=== PATIENT | female | born 1935 | race Caucasian/White ===

== ENCOUNTER → 2016-06-14 | Outpatient (CLI) | payer MEDICARE, BC ==
--- NOTE | 2016-06-15 09:04 | ECHOF ---
Referral Reason:R06.00 dyspnea MEASUREMENTS -------- HEIGHT: 152.4 cm WEIGHT: 50.8 kg BP: IVSd: 1.4 cm (0.6 - 1.1) LVIDd: 2.9 cm (3.9 - 5.3) LVPWd: 1.4 cm (0.6 - 1.1) IVSs: 1.9 cm LVIDs: 1.3 cm LVPWs: 1.7 cm Ao Diam: 2.8 cm (2.0 - 3.7) AV Cusp: 1.6 cm (1.5 - 2.6) LA Diam: 3.5 cm (2.7 - 3.8) MV EXCURSION: 10.888 mm (> 18.000) MV EF SLOPE: 23 mm/s (70 - 150) EPSS: 0.4 cm MV E Heri: 0.74 m/s MV DecT: 175 ms MV A Heri: 1.21 m/s MV E/A Ratio: 0.61 FINDINGS -------- Resting tachycardia (HR>100bpm). This was a technically difficult study with suboptimal views. Pt. Very Sob Pt has severe COPD. There is moderate concentric left ventricular hypertrophy. Possible LVOT Obstruction with a Max PG OF 30mmHg and a Mean PG of 16mmHg. The right ventricle is normal in size and function. The left atrium is normal in size. The right atrium is normal in size. Aortic valve is trileaflet and is mildly thickened. The mitral valve leaflets are mildly thickened. Mild mitral regurgitation is present. Trace tricuspid regurgitation present. The right ventricular systolic pressure, as measured by Doppler, is {RVSP}. Pulmonic valve appears structurally normal. The aortic root size is normal. The pericardium is normal. CONCLUSIONS -------- 1. Resting tachycardia (HR>100bpm). 2. Aortic valve is trileaflet and is mildly thickened. 3. The mitral valve leaflets are mildly thickened. 4. Mild mitral regurgitation is present. 5. Trace tricuspid regurgitation present. 6. The right ventricular systolic pressure, as measured by Doppler, is {RVSP}. 7. Pulmonic valve appears structurally normal. 8. The aortic root size is normal. 9. The pericardium is normal. 10. This was a technically difficult study with suboptimal views. 11. Pt. Very Sob 12. Pt has severe COPD. 13. There is moderate concentric left ventricular hypertrophy. 14. Possible LVOT Obstruction with a Max PG of 30mmHg and a Mean PG of 16mmHg. 15. The right ventricle is normal in size and function. 16. The left atrium is normal in size. 17. The right atrium is normal in size. EXHIBITS CURATOR: Salome Joseph RDCS
== END | disposition home or self-care (01) ==
LOC: RADECHMAIN 13:11
PROVIDERS: ATTEND Family Medicine
DX: I08.3 Combined rheumatic disorders of mitral, aortic and tricuspid valves (principal); J44.9 Chronic obstructive pulmonary disease, unspecified; R00.0 Tachycardia, unspecified
CPT/HCPCS: 93306

== ENCOUNTER 2017-02-18 14:51 | Emergency (ER) | payer MEDICARE, BC ==
[2017-02-18] MEDS ORDERED: LIDOCAINE/EPINEPHR/TETRACAINE 5 ML BOTTLE TOPICAL ONE (15:38)
--- NOTE | 2017-02-18 16:27 | CT ---
EXAMINATION TYPE: CT brain wo con DATE OF EXAM: 02/18/2017 COMPARISON: NONE HISTORY: Fall today. Injury to nose. CT DLP: 1213.[address] of the brain was performed. The ventricles, basal cisterns and sulci overlying the cerebral convexities demonstrate mild enlargem ent. There is no evidence for intracranial hemorrhage or sulcal effacement. There is decreased attenuation about the periventricular white matter and deep white matter of both c erebral hemispheres, compatible with chronic small vessel ischemia. Differential diagnosis does inclu de demyelination. No mass effects are seen.No midline shift. Osseous calvarium is intact. If symptoms persist consider MRI. IMPRESSION: 1. Age related atrophic and chronic small vessel ischemic change without acute intracranial process s een at this time.
[2017-02-18] MEDS ORDERED: DIPH,PERTUS(ACELL)TETVAC-LF 0.5 ML VIAL IM ONE (16:29)
--- NOTE | 2017-02-18 16:30 | CT ---
EXAMINATION TYPE: CT facial bones wo con DATE OF EXAM: 02/18/2017 COMPARISON: NONE HISTORY: Fall today. Injury to nose. CT DLP: 494.[address] of the facial bones was performed in the axial and coronal planes. Bone and soft tissu e window settings are submitted. Paranasal soft tissue swelling noted. Mildly comminuted and none significantly depressed nasal bone fracture seen. Nasal spine component id entified. No additional facial bone fractures identified at this time. The globes are intact. Paranasal sinuses are well-aerated. IMPRESSION: 1. Mildly comminuted and none significantly depressed nasal bone fracture seen. Nasal spine componen t identified.
--- NOTE | 2017-02-18 16:31 | ED ---
General Adult HPI - General Chief complaint: Wound/Laceration Stated complaint: fall/nose lac Time Seen by Provider: 02/18/17 15:33 Source: patient, RN notes reviewed Mode of arrival: wheelchair Limitations: no limitations - History of Present Illness Initial comments: This is a 81-year-old female presents emergency Department with chief complaint of trip and fall. Patient states that she tripped forward falling onto carpet. Patient states she has a nose laceration. She denies any blood thinners denies headache, dizziness, neck pain or loss consciousness. Patient states she is unsure when her last tetanus was. Patient denies any other injuries at this time other then his nose laceration. Denies any extremity injury no dentition injury - Related Data Previous Rx's Medication Instructions Recorded Amoxicillin/Potassium Clav 1 tab PO Q12HR #20 tab 02/18/17 [Augmentin 875-125 Tablet] Allergies Allergy/AdvReac Type Severity Reaction Status Date / Time No Known Allergies Allergy Verified 02/18/17 14:56 Review of Systems ROS Statement: Those systems with pertinent positive or pertinent negative responses have been documented in the HPI. ROS Other: All systems not noted in ROS Statement are negative. Past Medical History Past Medical History: COPD History of Any Multi-Drug Resistant Organisms: None Reported Past Psychological History: No Psychological Hx Reported Smoking Status: Former smoker Past Alcohol Use History: None Reported Past Drug Use History: None Reported General Exam Limitations: no limitations General appearance: alert, in no apparent distress Head exam: Present: atraumatic, normocephalic, normal inspection Eye exam: Present: normal appearance, PERRL, EOMI. Absent: scleral icterus, conjunctival injection, periorbital swelling ENT exam: Present: normal oropharynx, mucous membranes moist, TM's normal bilaterally, normal external ear exam, other (Stellate 3 cm laceration of the nose, nasal bone is visible with chip of the bone noted) Neck exam: Present: normal inspection, full ROM. Absent: tenderness, meningismus, lymphadenopathy Respiratory exam: Present: normal lung sounds bilaterally. Absent: respiratory distress, wheezes, rales, rhonchi, stridor Cardiovascular Exam: Present: regular rate, normal rhythm, normal heart sounds. Absent: systolic murmur, diastolic murmur, rubs, gallop, clicks Neurological exam: Present: alert, oriented X3, CN II-XII intact, reflexes normal. Absent: motor sensory deficit Skin exam: Present: warm, dry, intact, normal color. Absent: rash Course Vital Signs 02/18/17 14:53 Temperature 98.0 F Pulse Rate 100 Respiratory 20 Rate Blood Pressure 145/85 O2 Sat by Pulse 96 Oximetry Procedures - Laceration Laceration #1 Time Out Performed: Yes Indication: laceration Site: face (Nose) Size (cm): 3 Description: stellate Anesthetic Used: lidocaine 1% (let soln) Pre-repair: wound explored, irrigated extensively, deep structures intact ( There is a nasal bone fracture noted with chip, this was removed) Type of Sutures: nylon Size of Sutures: 6-0 Number of Sutures: 5 Technique: simple, interrupted Patient Tolerated Procedure: well, no complications Medical Decision Making - Medical Decision Making 81-year-old male present emergency from for trip and fall. Patient has a nasal bone fracture, laceration no intracranial bleed on CT. Patient laceration was closed using sutures. Patient we discharge on Augmentin for the nasal bone fracture and follow-up with ENT. Return parameters were discussed. Disposition Clinical Impression: Fracture, nasal bone, open, Laceration of nose, Fall Disposition: HOME SELF-CARE Condition: Stable Instructions: Nasal Fracture (ED), Care For Your Stitches (ED), Facial Laceration (ED) Additional Instructions: Return in 10 days for suture removal.Please return to the Emergency Department if symptoms worsen or any other concerns. Prescriptions: Amoxicillin/Potassium Clav [Augmentin 875-125 Tablet] 1 tab PO Q12HR #20 tab Referrals: Eran Thompson DO [Primary Care Provider] - 1-2 days Jim Contreras DO [Doctor of Osteopathic Medicine] - 1-2 days Time of Disposition: 16:34
[2017-02-18 16:46] VITALS: BP 150/69; PULSE 98; RESP 18; TEMP 97.8
== END 2017-02-18 16:57 | disposition home or self-care (01) ==
LOC: EC 14:51
DX: S02.2XXB Fracture of nasal bones, initial encounter for open fracture (principal); Z23 Encounter for immunization; Z87.891 Personal history of nicotine dependence; W01.0XXA Fall on same level from slipping, tripping and stumbling without subsequent striking against object, initial encounter; Y92.009 Unspecified place in unspecified non-institutional (private) residence as the place of occurrence of the external cause
CPT/HCPCS: 12052; 70450; 70486; 90471; 90715; 99283

== ENCOUNTER 2017-04-01 23:04 | Inpatient (IN) | payer MEDICARE, BC ==
[2017-04-01] MEDS ORDERED: SODIUM CHLORIDE 0.9% 1,000 ML IV STA (23:22)
[2017-04-01] MEDS ORDERED: methylPREDNISolone SOD SUCCI 125 MG/2 ML VIAL IV STA (23:22)
[2017-04-01] MEDS ORDERED: IPRATROPIUM 0.5 MG/2.5 ML NEBU INHALATION STA (23:22)
[2017-04-01] MEDS ORDERED: ALBUTEROL NEBULIZED 2.5 MG/3 ML INHALATION STA (23:22)
--- NOTE | 2017-04-01 23:43 | ED ---
General Adult HPI - General Chief complaint: Shortness of Breath Stated complaint: LAURIE Time Seen by Provider: 04/01/17 23:07 Source: patient, EMS, RN notes reviewed, old records reviewed Mode of arrival: EMS - History of Present Illness Initial comments: 81-year-old female history of COPD, lung mass and recent hospital admission for pneumonia presenting with worsening cough and dyspnea. Patient was discharged 3 days ago. She has had steadily worsening shortness of breath since that time. She denies fever or chills. Denies chest pain. States her cough is mostly nonproductive. She does have history of end-stage COPD and is on 4 L of home O2. 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 Denies any URI symptoms. Denies abdominal pain. Denies nausea vomiting or diarrhea. - Related Data Home Medications Medication Instructions Recorded Confirmed Budesonide [Pulmicort Flexhaler] 2 puff INHALATION RT-BID 03/23/17 04/01/17 Calcium Carbonate [Calcium] 600 mg PO QAM 03/23/17 04/01/17 Furosemide [Lasix] 20 mg PO QAM 03/23/17 04/01/17 Lisinopril [Zestril] 20 mg PO DAILY 03/23/17 04/01/17 Multivitamins, Thera [Multivitamin 1 tab PO DAILY 03/23/17 04/01/17 (formulary)] [place]-3 Fatty Acids/Fish Oil [Fish 1 cap PO QAM 03/23/17 04/01/17 Oil 1,000 mg Softgel] Simvastatin [Zocor] 20 mg PO HS 03/23/17 04/01/17 Umeclidinium [place] [Incruse 1 puff INHALATION RT-DAILY 03/23/17 04/01/17 Ellipta] Albuterol Inhaler [Ventolin Hfa 1 - 2 puff INHALATION RT-Q4H PRN 04/01/17 Inhaler] Previous Rx's Medication Instructions Recorded Demeclocycline [Declomycin] 300 mg PO BID #60 tab 03/28/17 Levofloxacin [Levaquin] 750 mg PO DAILY #10 tab 03/28/17 predniSONE See Taper PO DAILY #30 tab 03/28/17 Allergies Allergy/AdvReac Type Severity Reaction Status Date / Time chocolate flavor Allergy Dyspnea Verified 04/01/17 23:36 codeine AdvReac stomach & Verified 04/01/17 23:36 bowel issues perfume AdvReac Dyspnea Verified 04/01/17 23:36 Band-Aid AdvReac Rash/Hives Uncoded 03/23/17 05:48 Review of Systems ROS Statement: Those systems with pertinent positive or pertinent negative responses have been documented in the HPI. ROS Other: All systems not noted in ROS Statement are negative. Past Medical History Past Medical History: COPD, Hyperlipidemia, Hypertension, Osteoarthritis (OA), Pneumonia Additional Past Medical History / Comment(s): Patient is also known to have history of osteopenia, cor pulmonale, chronic hypoxic respiratory failure History of Any Multi-Drug Resistant Organisms: None Reported Past Surgical History: Hysterectomy, Orthopedic Surgery Additional Past Surgical History / Comment(s): foot surgery x 3 Past Anesthesia/Blood Transfusion Reactions: No Reported Reaction Past Psychological History: Anxiety Smoking Status: Former smoker Past Alcohol Use History: None Reported Past Drug Use History: None Reported - Past Family History Mother Family Medical History: Cancer Daughter(s) Family Medical History: Cancer Sister(s) Family Medical History: CVA/TIA General Exam General appearance: alert, in distress Head exam: Present: atraumatic, normocephalic Eye exam: Present: normal appearance, PERRL ENT exam: Present: mucous membranes dry Neck exam: Present: normal inspection, full ROM. Absent: tenderness, meningismus Respiratory exam: Present: respiratory distress, wheezes, accessory muscle use, decreased breath sounds, prolonged expiratory Cardiovascular Exam: Present: tachycardia, irregular rhythm GI/Abdominal exam: Present: soft. Absent: distended, tenderness, guarding Extremities exam: Present: normal inspection, full ROM, normal capillary refill. Absent: pedal edema Back exam: Present: normal inspection Neurological exam: Present: alert, oriented X3, CN II-XII intact. Absent: motor sensory deficit Psychiatric exam: Present: normal affect, normal mood Skin exam: Present: warm, dry, intact. Absent: cyanosis, diaphoretic Course Vital Signs 04/01/17 04/02/17 04/02/17 23:06 00:36 00:45 Temperature 98.5 F Pulse Rate 111 H 108 H 90 Respiratory 30 H Rate Blood Pressure 140/74 O2 Sat by Pulse 100 Oximetry 04/02/17 01:00 Temperature Pulse Rate 90 Respiratory Rate Blood Pressure O2 Sat by Pulse Oximetry EKG Findings - EKG Comments: EKG Findings:: EKG shows atrial flutter with variable block PVCs overall poor quality EKG. EKG is irregular, concern for multifocal atrial tachycardia, rate of 125, QRS duration 92, QTC 435 Medical Decision Making - Medical Decision Making 81-year-old female with end-stage COPD and recent diagnosis of lung mass presents in severe respiratory distress. Previous records are reviewed. Patient does have 6 cm mass in the right upper lobe and is currently on 4 L home O2. X-ray today shows similar appearance of mass with changes consistent with COPD, white blood cell count 20.9, patient is on steroids. Hemoglobin stable 10.6, sodium low 118, as well as low chloride, patient started on normal saline at 75 an hour. Potassium is 6.0 although this is hemolyzed. Influenza negative. Patient is started on Cardizem for irregular tachycardia, atrial flutter versus multifocal atrial tachycardia, she is also started on heparin drip as this is a new diagnosis. She has no chest pain. Breathing improves with BiPAP and albuterol. She is continued on steroids. Continued on her home dose of Levaquin. Diagnosis: COPD exacerbation with respiratory failure on BiPAP, hyponatremia, irregular tachycardia concern for multifocal atrial tachycardia. - Lab Data Result diagrams: 04/01/17 23:18 04/01/17 23:18 Lab Results 04/01/17 04/01/17 04/01/17 Range/Units 23:18 23:18 23:18 WBC 20.9 H (3.8-10.6) k/uL RBC 3.33 L (3.80-5.40) m/uL Hgb 10.6 L (11.4-16.0) gm/dL Hct 31.9 L (34.0-46.0) % MCV 95.6 D (80.0-100.0) fL MCH 31.7 (25.0-35.0) pg MCHC 33.2 (31.0-37.0) g/dL RDW 13.6 (11.5-15.5) % Plt Count 186 (150-450) k/uL Neutrophils % 87 % Lymphocytes % 6 % Monocytes % 3 % Eosinophils % 1 % Basophils % 1 % Neutrophils # 18.3 H (1.3-7.7) k/uL Lymphocytes # 1.3 (1.0-4.8) k/uL Monocytes # 0.7 (0-1.0) k/uL Eosinophils # 0.1 (0-0.7) k/uL Basophils # 0.3 H (0-0.2) k/uL PT (9.0-12.0) sec INR (<1.2) APTT (22.0-30.0) sec VBG pH (7.31-7.41) VBG pCO2 (37-51) mmHg VBG HCO3 (24-28) mmol/L Sodium 118 L* (137-145) mmol/L Potassium 6.0 H (3.5-5.1) mmol/L Chloride 74 L* (98-107) mmol/L Carbon Dioxide 41 H* (22-30) mmol/L Anion Gap 3 mmol/L BUN 24 H (7-17) mg/dL Creatinine 0.50 L (0.52-1.04) mg/dL Est GFR (MDRD) Af Amer >60 (>60 ml/min/1.73 sqM) Est GFR (MDRD) Non-Af >60 (>60 ml/min/1.73 sqM) Glucose 170 H (74-99) mg/dL Plasma Lactic Acid Domenic (0.7-2.0) mmol/L Calcium 8.8 (8.4-10.2) mg/dL Magnesium 1.9 (1.6-2.3) mg/dL Total Bilirubin 1.1 (0.2-1.3) mg/dL AST 67 H (14-36) U/L ALT 29 (9-52) U/L Alkaline Phosphatase 53 (38-126) U/L Total Creatine Kinase 91 (30-135) U/L CK-MB (CK-2) 1.8 (0.0-2.4) ng/mL CK-MB (CK-2) Rel Index 2.0 Troponin I 0.022 (0.000-0.034) ng/mL Total Protein 6.6 (6.3-8.2) g/dL Albumin 3.9 (3.5-5.0) g/dL Influenza Type A RNA (Not Detectd) Influenza Type B (PCR) (Not Detectd) 04/01/17 04/01/1718 Range/Units 23:18 23:18 23:49 WBC (3.8-10.6) k/uL RBC (3.80-5.40) m/uL Hgb (11.4-16.0) gm/dL Hct (34.0-46.0) % MCV (80.0-100.0) fL MCH (25.0-35.0) pg MCHC (31.0-37.0) g/dL RDW (11.5-15.5) % Plt Count (150-450) k/uL Neutrophils % % Lymphocytes % % Monocytes % % Eosinophils % % Basophils % % Neutrophils # (1.3-7.7) k/uL Lymphocytes # (1.0-4.8) k/uL Monocytes # (0-1.0) k/uL Eosinophils # (0-0.7) k/uL Basophils # (0-0.2) k/uL PT 10.4 (9.0-12.0) sec INR 1.1 (<1.2) APTT 23.9 (22.0-30.0) sec VBG pH 7.44 H (7.31-7.41) VBG pCO2 62 H (37-51) mmHg VBG HCO3 42 H (24-28) mmol/L Sodium (137-145) mmol/L Potassium (3.5-5.1) mmol/L Chloride (98-107) mmol/L Carbon Dioxide (22-30) mmol/L Anion Gap mmol/L BUN (7-17) mg/dL Creatinine (0.52-1.04) mg/dL Est GFR (MDRD) Af Amer (>60 ml/min/1.73 sqM) Est GFR (MDRD) Non-Af (>60 ml/min/1.73 sqM) Glucose (74-99) mg/dL Plasma Lactic Acid Domenic 1.5 (0.7-2.0) mmol/L Calcium (8.4-10.2) mg/dL Magnesium (1.6-2.3) mg/dL Total Bilirubin (0.2-1.3) mg/dL AST (14-36) U/L ALT (9-52) U/L Alkaline Phosphatase (38-126) U/L Total Creatine Kinase (30-135) U/L CK-MB (CK-2) (0.0-2.4) ng/mL CK-MB (CK-2) Rel Index Troponin I (0.000-0.034) ng/mL Total Protein (6.3-8.2) g/dL Albumin (3.5-5.0) g/dL Influenza Type A RNA (Not Detectd) Influenza Type B (PCR) (Not Detectd) 04/01/17 Range/Units 23:51 WBC (3.8-10.6) k/uL RBC (3.80-5.40) m/uL Hgb (11.4-16.0) gm/dL Hct (34.0-46.0) % MCV (80.0-100.0) fL MCH (25.0-35.0) pg MCHC (31.0-37.0) g/dL RDW (11.5-15.5) % Plt Count (150-450) k/uL Neutrophils % % Lymphocytes % % Monocytes % % Eosinophils % % Basophils % % Neutrophils # (1.3-7.7) k/uL Lymphocytes # (1.0-4.8) k/uL Monocytes # (0-1.0) k/uL Eosinophils # (0-0.7) k/uL Basophils # (0-0.2) k/uL PT (9.0-12.0) sec INR (<1.2) APTT (22.0-30.0) sec VBG pH (7.31-7.41) VBG pCO2 (37-51) mmHg VBG HCO3 (24-28) mmol/L Sodium (137-145) mmol/L Potassium (3.5-5.1) mmol/L Chloride (98-107) mmol/L Carbon Dioxide (22-30) mmol/L Anion Gap mmol/L BUN (7-17) mg/dL Creatinine (0.52-1.04) mg/dL Est GFR (MDRD) Af Amer (>60 ml/min/1.73 sqM) Est GFR (MDRD) Non-Af (>60 ml/min/1.73 sqM) Glucose (74-99) mg/dL Plasma Lactic Acid Domenic (0.7-2.0) mmol/L Calcium (8.4-10.2) mg/dL Magnesium (1.6-2.3) mg/dL Total Bilirubin (0.2-1.3) mg/dL AST (14-36) U/L ALT (9-52) U/L Alkaline Phosphatase (38-126) U/L Total Creatine Kinase (30-135) U/L CK-MB (CK-2) (0.0-2.4) ng/mL CK-MB (CK-2) Rel Index Troponin I (0.000-0.034) ng/mL Total Protein (6.3-8.2) g/dL Albumin (3.5-5.0) g/dL Influenza Type A RNA Not Detected (Not Detectd) Influenza Type B (PCR) Not Detected (Not Detectd) Critical Care Time Critical Care Time: Yes Total Critical Care Time: 35 Disposition Clinical Impression: Acute exacerbation of chronic obstructive airways disease Disposition: ADMITTED IP TO THIS [facility] Condition: Serious Referrals: Eran Thompson DO [Primary Care Provider] - 1-2 days Decision to Admit Reason: Admit from EC Decision Date: 04/02/17 Decision Time: 02:00
[2017-04-01 23:47] LABS: Basophils # (A) 0.3 k/uL (0-0.2); Basophils % (A) 1 %; Eosinophils # (A) 0.1 k/uL (0-0.7); Eosinophils % (A) 1 %; HCT 31.9 % (34.0-46.0); HGB 10.6 gm/dL (11.4-16.0); Lymphocytes # (A) 1.3 k/uL (1.0-4.8); Lymphocytes % (A) 6 %; MCH 31.7 pg (25.0-35.0); MCHC 33.2 g/dL (31.0-37.0); Monocytes # (A) 0.7 k/uL (0-1.0); Monocytes % (A) 3 %; Neutrophils # (A) 18.3 k/uL (1.3-7.7); Neutrophils % (A) 87 %; Platelet Count 186 k/uL (150-450); RBC 3.33 m/uL (3.80-5.40); RDW 13.6 % (11.5-15.5); WBC 20.9 k/uL (3.8-10.6)
--- NOTE | 2017-04-01 23:49 | XR ---
EXAMINATION TYPE: XR chest 2V DATE OF EXAM: 04/01/2017 COMPARISON: 03/22/2017 HISTORY: Difficulty breathing TECHNIQUE: Frontal and lateral views of the chest are obtained. FINDINGS: There is no heart failure. Heart is top normal in size. There is a 5 cm rounded mass in th e right midlung consistent with tumor. This appears not significantly different than last exam. There is pulmonary hyperinflation and flattening of the diaphragm. There are chest leads. Bones are osteop enic. IMPRESSION: COPD. Right pulmonary mass. No significant change compared to last exam. No heart failur e.
[2017-04-01 23:50] LABS: ALT 29 U/L (9-52); AST 67 U/L (14-36); Albumin 3.9 g/dL (3.5-5.0); Alkaline Phosphatase 53 U/L (38-126); Blood Urea Nitrogen 24 mg/dL (7-17); Calcium 8.8 mg/dL (8.4-10.2); Glucose 170 mg/dL (74-99); Magnesium 1.9 mg/dL (1.6-2.3); Total Bilirubin 1.1 mg/dL (0.2-1.3); Total Protein 6.6 g/dL (6.3-8.2)
[2017-04-01 23:54] LABS: MCV 95.6 fL (80.0-100.0)
[2017-04-01 23:56] LABS: Anion Gap 3 mmol/L
[2017-04-01 23:59] LABS: Chloride 74 mmol/L (98-107); Sodium 118 mmol/L (137-145)
[2017-04-02] LABS: Carbon Dioxide 41 mmol/L (22-30)
[2017-04-02 00:14] LABS: Creatine Kinase MB 1.8 ng/mL (0.0-2.4); Troponin I 0.022 ng/mL (0.000-0.034)
[2017-04-02] MEDS ORDERED: SODIUM CHLORIDE 0.9% 1,000 ML IV SCH (00:15)
[2017-04-02 00:19] LABS: VBG PH 7.44 (7.31-7.41)
[2017-04-02 01:05] LABS: INR 1.1 (<1.2); Partial Thromboplastin Time 23.9 sec (22.0-30.0); Prothrombin Time 10.4 sec (9.0-12.0)
[2017-04-02] MEDS ORDERED: DILTIAZEM 125 MG in SODIUM CHLORIDE 0.9% 100 ML IV ONE (01:20)
[2017-04-02] MEDS ORDERED: HEPARIN SODIUM,PORCINE 5,000 UNIT/ML 1 ML VIAL IV PRN (02:05)
[2017-04-02] MEDS ORDERED: HEPARIN SODIUM,PORCINE 5,000 UNIT/ML 1 ML VIAL IV ONE (02:05)
[2017-04-02] MEDS ORDERED: NALOXONE 0.4 MG/ML 1 ML VIAL IV PRN (02:06)
[2017-04-02] MEDS ORDERED: HYDROmorphone 1 MG/ML 1 ML SYRINGE IVP PRN (02:06)
[2017-04-02] MEDS ORDERED: ALBUTEROL NEBULIZED 2.5 MG/3 ML INHALATION PRN (02:09)
[2017-04-02] MEDS: HEPARIN SOD,PORK IN 0.45% NACL 25,000 UNIT in 0.45% NACL 1 500ML.BAG IV SCH (02:24)
[2017-04-02] MEDS: ALBUTEROL NEBULIZED 2.5 MG/3 ML INHALATION SCH ×3 (04:27→11:45)
[2017-04-02 06:30] LABS: Glucose,Whole Blood 156 mg/dL (75-99)
[2017-04-02] MEDS: INSULIN ASPART 100 UNIT/ML 1 ML 10 ML VIAL SQ SCH ×4 (06:47→21:21)
[2017-04-02] MEDS: methylPREDNISolone SOD SUCCI 125 MG/2 ML VIAL IV SCH ×2 (09:31→21:20)
[2017-04-02] MEDS: LEVOFLOXACIN 750 MG TAB PO SCH (09:32)
[2017-04-02] MEDS: DEMECLOCYCLINE 150 MG TAB PO SCH ×2 (09:32→21:20)
--- NOTE | 2017-04-02 11:46 | P.CNPUL ---
History of Present Illness Consult date: 04/02/17 Reason for consult: dyspnea, COPD, lung mass History of present illness: A very pleasant 81-year-old here patient with known history of advanced COPD, chronic hypoxic respiratory failure and the recent diagnosis of a right lower lobe mass which is highly suggestive of lung cancer. 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 The patient was given demeclocycline and the patient was discharged home. After being discharged home for around 3 days the patient became steadily more short of breath and she presented back to the emergency department. She denies having any fever or chills. She denied having any chest pain. She had increased exertional dyspnea and even dyspnea at rest and she had also increased cough which was essentially nonproductive. She is on oxygen at 4 L of oxygen by nasal cannula at home. No change in mental status. No pleurisy. No hemoptysis. No vomiting. No diarrhea. On admission, the sodium level was again low at 118. She has been maintained on a combination of Incruse and Pulmicort Flexhaler in addition to Ventolin rescue inhaler on an albuterol and Atrovent about treatments around the clock. Note that the CAT scan of the chest that she had on 03/20/2017 showed a 6 cm mass in the right lung, in the right upper lobe which is somewhat cavitating. This was felt to be a representation of a neoplasm. During her earlier hospitalization, she was seen by radiation oncology, Dr. Jewel Silva, and she was supposed to start external beam radiation therapy to the right lung mass/review surgery. She is obviously not a candidate for any form of surgical interventions knowing that her COPD is advanced and her overall performance and functional status is poor. Based on her most recent pulmonary function tests from 2011, she has an FEV1 of 0.71 L which is 41% of predicted. A follow-up spirometry has not been done since. Review of Systems Constitutional: Reports fatigue, Reports lethargy, Reports weakness, Reports weight loss Eyes: denies blurred vision, denies bulging eye, denies decreased vision Ears: deny: decreased hearing, ear discharge, earache Ears, nose, mouth and throat: Denies headache, Denies sore throat Cardiovascular: Reports decreased exercise tolerance, Reports dyspnea on exertion, Reports shortness of breath Respiratory: Reports cough, Reports dyspnea Gastrointestinal: Reports loss of appetite Genitourinary: Denies dysuria, Denies hematuria Musculoskeletal: absent: ankle pain, ankle stiffness, ankle swelling Integumentary: Denies pruritus, Denies rash Neurological: Reports weakness Psychiatric: Denies anxiety, Denies depression Endocrine: Denies fatigue, Denies weight change Past Medical History Past Medical History: COPD, Hyperlipidemia, Hypertension, Osteoarthritis (OA), Pneumonia Additional Past Medical History / Comment(s): COPD, right upper lobe mass, hypertension, hyperlipidemia, osteoarthritis, osteopenia , cor pulmonale, chronic hypoxic respiratory failure on oxygen at 4 L/m nasal cannula. History of Any Multi-Drug Resistant Organisms: None Reported Past Surgical History: Hysterectomy, Orthopedic Surgery Additional Past Surgical History / Comment(s): foot surgery x 3 Past Anesthesia/Blood Transfusion Reactions: No Reported Reaction Past Psychological History: Anxiety Smoking Status: Former smoker Past Alcohol Use History: None Reported Past Drug Use History: None Reported - Past Family History Mother Family Medical History: Cancer Daughter(s) Family Medical History: Cancer Sister(s) Family Medical History: CVA/TIA Medications and Allergies Home Medications Medication Instructions Recorded Confirmed Type Budesonide [Pulmicort Flexhaler] 2 puff INHALATION RT-BID 03/23/17 04/01/17 History Calcium Carbonate [Calcium] 600 mg PO QAM 03/23/17 04/01/17 History Furosemide [Lasix] 20 mg PO QAM 03/23/17 04/01/17 History Lisinopril [Zestril] 20 mg PO DAILY 03/23/17 04/01/17 History Multivitamins, Thera [Multivitamin 1 tab PO DAILY 03/23/17 04/01/17 History (formulary)] [place]-3 Fatty Acids/Fish Oil [Fish 1 cap PO QAM 03/23/17 04/01/17 History Oil 1,000 mg Softgel] Simvastatin [Zocor] 20 mg PO HS 03/23/17 04/01/17 History Umeclidinium [place] [Incruse 1 puff INHALATION RT-DAILY 03/23/17 04/01/17 History Ellipta] Demeclocycline [Declomycin] 300 mg PO BID #60 tab 03/28/17 04/01/17 Rx Levofloxacin [Levaquin] 750 mg PO DAILY #10 tab 03/28/17 04/01/17 Rx predniSONE See Taper PO DAILY #30 tab 03/28/17 04/01/17 Rx Albuterol Inhaler [Ventolin Hfa 1 - 2 puff INHALATION RT-Q4H PRN 04/01/17 History Inhaler] Allergies Allergy/AdvReac Type Severity Reaction Status Date / Time chocolate flavor Allergy Dyspnea Verified 04/01/17 23:36 codeine AdvReac stomach & Verified 04/01/17 23:36 bowel issues perfume AdvReac Dyspnea Verified 04/01/17 23:36 Band-Aid AdvReac Rash/Hives Uncoded 03/23/17 05:48 Physical Exam Vitals: Vital Signs Temp Pulse Pulse Pulse Resp BP BP 04/02/17 08:22 97 04/02/17 08:10 97 04/02/17 08:00 97.1 F L 100 103 H 30 H 147/60 04/02/17 05:28 103 H 24 04/02/17 04:55 154/82 04/02/17 04:39 88 04/02/17 04:27 87 04/02/17 03:45 92 105/57 04/02/17 03:15 98.4 F 86 103 H 24 85/45 128/93 04/02/17 02:36 102 H 16 104/57 04/02/17 02:05 110 H 87/44 04/02/17 01:00 90 04/02/17 00:45 90 04/02/17 00:36 108 H 04/01/17 23:06 98.5 F 111 H 30 H 140/74 Pulse Ox 04/02/17 08:22 04/02/17 08:10 99 04/02/17 08:00 99 04/02/17 05:28 04/02/17 04:55 04/02/17 04:39 04/02/17 04:27 04/02/17 03:45 99 04/02/17 03:15 99 04/02/17 02:36 100 04/02/17 02:05 99 04/02/17 01:00 04/02/17 00:45 04/02/17 00:36 04/01/17 23:06 100 Intake and Output 04/01/17 04/02/17 04/02/17 22:59 06:59 14:59 Intake Total 198.292 Balance 198.292 Intake: Intake, IV Titration 80.292 Amount Heparin Sod,Pork in 0.45% 80.292 NaCl 25,000 unit In 0.45 % NaCl 1 500ml.bag @ 12 UNITS/KG/HR 11.75 mls/hr IV .Q24H [facility] Rx#: [id number] Oral 118 Other: # Voids 0 Weight 48.988 kg Physical Exam: Revealed an 81-year-old female, frail looking, chronically ill- looking, noted to have dyspnea at rest and with any activity. HEENT:Neck was supple and without jugular venous distension, thyromegaly, or carotid bruits. Carotids were easily palpable bilaterally. There was no adenopathy. Chest: [Diminished breath sound bilaterally, minimal crackles at the right base , no rhonchi, no wheezes. Symmetrical chest expansion was noted. No chest wall tenderness Cardiac Exam: Cardiac exam revealed the PMI to be normally situated and sized. The rhythm was regular and no extrasystoles were noted during several minutes of auscultation. The first and second heart sounds were normal and physiologic splitting of the second heart sound was noted. There were no murmurs, rubs, clicks, or gallops. Abdomen: Abdominal exam revealed normal bowel sounds. The abdomen was soft, non- tender, and without masses, organomegaly, or appreciable enlargement of the abdominal aorta. Extremities: [No clubbing, 1+ bipedal edema, no cyanosis.] Neurological Exam: [No focal neurologic deficit.] Psychiatric: Normal mood affect and normal mental status examination. Lymphatic: No lymphadenopathy was appreciated. Musculoskeletal: Generally weak, no deformities, normal range of motion. Results - Laboratory Findings CBC and BMP: 04/01/17 23:18 04/01/17 23:18 PT/INR, D-dimer PT 10.4 sec (9.0-12.0) 04/01/17 23:18 INR 1.1 (<1.2) 04/01/17 23:18 Abnormal lab findings: Abnormal Labs 04/01/17 04/01/17 04/01/17 23:18 23:18 23:49 WBC 20.9 H RBC 3.33 L Hgb 10.6 L Hct 31.9 L Neutrophils # 18.3 H Basophils # 0.3 H APTT VBG pH 7.44 H VBG pCO2 62 H VBG HCO3 42 H Sodium 118 L* Potassium 6.0 H Chloride 74 L* Carbon Dioxide 41 H* BUN 24 H Creatinine 0.50 L Glucose 170 H POC Glucose (mg/dL) AST 67 H 04/02/17 04/02/17 06:29 08:22 WBC RBC Hgb Hct Neutrophils # Basophils # APTT 42.1 H VBG pH VBG pCO2 VBG HCO3 Sodium Potassium Chloride Carbon Dioxide BUN Creatinine Glucose POC Glucose (mg/dL) 156 H AST - Diagnostic Findings Chest x-ray: image reviewed Assessment and Plan Plan: Impression: 1 Acute on chronic hypoxic respiratory failure secondary to COPD exacerbation, the patient also has severe end-stage COPD, FEV1 is less than 40%. 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 The patient was supposed to undergo radiosurgery through radiation oncology. The patient obviously is not a candidate for any surgical resection due to poor baseline performance and functional status and poor and advanced lung disease. 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 The patient will be restarted back on the rectus lidocaine 3 new onset atrial flutter with 2 to 1 block and rapid ventricular response 4 hypertension 5 hyperlipidemia 6 osteopenia 7 cor pulmonale. Plan Restart demeclocycline. Fluid restriction. Monitor sodium level. The low sodium level is likely paraneoplastic related to lung cancer. Treatment of an acute COPD exacerbation with a combination of bronchodilators and steroids. Continue Cardizem drip for rate control. Continued IV heparin. Echocardiogram. Cardiology consultation. We'll continue to follow.
[2017-04-02 11:50] LABS: Glucose,Whole Blood 160 mg/dL (75-99)
[2017-04-02] MEDS ORDERED: IPRATROPIUM 0.5 MG/2.5 ML NEBU INHALATION SCH (12:00)
[2017-04-02] MEDS: IPRATROPIUM-ALBUTEROL 3 ML NEB INHALATION SCH ×2 (15:37→19:44)
[2017-04-02 16:44] LABS: Glucose,Whole Blood 155 mg/dL (75-99)
[2017-04-02 21:08] LABS: Glucose,Whole Blood 210 mg/dL (75-99)
[2017-04-02] MEDS: ATORVASTATIN 10 MG TAB PO SCH (21:20)
--- NOTE | 2017-04-02 22:38 | P.HPIM ---
History of Present Illness H&P Date: 04/02/17 Chief Complaint: Generalized weakness and fall Patient is a 81-year-old female with known history of COPD on 4 L home oxygen, right upper lobe mass, hypertension, hyperlipidemia and generalized medical debility came to ER as a increased shortness of breath and cough as well as generalized weakness. Apparently patient had fall 2 at home. Otherwise patient denied any nausea vomiting or abdominal pain no diarrhea. Patient was recently admitted to the hospital with acute COPD exacerbation and hyponatremia.. Patient had CT chest at the time showed right upper lobe mass. 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 Patient presented back to the hospital after 3 days at home. Denied any hematemesis or melena. Patient was also found to have atrial flutter and was started on Cardizem drip and heparin IV. Otherwise patient is having generalized weakness and shortness of breath with minimal exertion. Patient was supposed to follow with radiation oncology. Patient is not a surgical candidate due to advanced COPD and generalized medical debility and poor functional status. Sodium level 118 on admission Patient does have leukocytosis Chest x-ray showed COPD and right upper lobe mass. No changes compared to previous study. Review of Systems Constitutional: Patient denies any fever or chills . Does have generalized weakness or weight loss and fatigue. Abdomen: Patient denied nausea vomiting and diarrhea and abdominal pain. Cardiovascular: Patient denies any chest pain or short of breath no palpitations. Respiratory: Cough with minimal sputum production and shortness of breath. \ Neurologic: Patient denied any numbness or tingling headache. Musculoskeletal: Patient denies any complaints of joint swelling or deformity. Skin: Negative Psychiatric: Negative Endocrine: No heat or cold intolerance. No recent weight gain. Genitourinary: No dysuria or hematuria. All other 14 point ROS negative except the above Patient is a poor historian due to underlying clinical condition. Past Medical History Past Medical History: COPD, Hyperlipidemia, Hypertension, Osteoarthritis (OA), Pneumonia Additional Past Medical History / Comment(s): COPD, right upper lobe mass, hypertension, hyperlipidemia, osteoarthritis, osteopenia , cor pulmonale, chronic hypoxic respiratory failure on oxygen at 4 L/m nasal cannula. History of Any Multi-Drug Resistant Organisms: None Reported Past Surgical History: Hysterectomy, Orthopedic Surgery Additional Past Surgical History / Comment(s): foot surgery x 3 Past Anesthesia/Blood Transfusion Reactions: No Reported Reaction Past Psychological History: Anxiety Smoking Status: Former smoker Past Alcohol Use History: None Reported Past Drug Use History: None Reported - Past Family History Mother Family Medical History: Cancer Daughter(s) Family Medical History: Cancer Sister(s) Family Medical History: CVA/TIA Medications and Allergies Home Medications Medication Instructions Recorded Confirmed Type Budesonide [Pulmicort Flexhaler] 2 puff INHALATION RT-BID 03/23/17 04/01/17 History Calcium Carbonate [Calcium] 600 mg PO QAM 03/23/17 04/01/17 History Furosemide [Lasix] 20 mg PO QAM 03/23/17 04/01/17 History Lisinopril [Zestril] 20 mg PO DAILY 03/23/17 04/01/17 History Multivitamins, Thera [Multivitamin 1 tab PO DAILY 03/23/17 04/01/17 History (formulary)] [place]-3 Fatty Acids/Fish Oil [Fish 1 cap PO QAM 03/23/17 04/01/17 History Oil 1,000 mg Softgel] Simvastatin [Zocor] 20 mg PO HS 03/23/17 04/01/17 History Umeclidinium [place] [Incruse 1 puff INHALATION RT-DAILY 03/23/17 04/01/17 History Ellipta] Demeclocycline [Declomycin] 300 mg PO BID #60 tab 03/28/17 04/01/17 Rx Levofloxacin [Levaquin] 750 mg PO DAILY #10 tab 03/28/17 04/01/17 Rx predniSONE See Taper PO DAILY #30 tab 03/28/17 04/01/17 Rx Albuterol Inhaler [Ventolin Hfa 1 - 2 puff INHALATION RT-Q4H PRN 04/01/17 History Inhaler] Allergies Allergy/AdvReac Type Severity Reaction Status Date / Time chocolate flavor Allergy Dyspnea Verified 04/01/17 23:36 codeine AdvReac stomach & Verified 04/01/17 23:36 bowel issues perfume AdvReac Dyspnea Verified 04/01/17 23:36 Band-Aid AdvReac Rash/Hives Uncoded 03/23/17 05:48 Physical Exam Vitals: Vital Signs Temp Pulse Pulse Pulse Resp BP BP 04/02/17 11:57 95 04/02/17 11:45 93 04/02/17 11:43 83 26 H 04/02/17 11:42 97.5 F L 83 26 H 114/54 04/02/17 08:22 97 04/02/17 08:10 97 04/02/17 08:00 97.1 F L 100 103 H 30 H 147/60 04/02/17 05:28 103 H 24 04/02/17 04:55 154/82 04/02/17 04:39 88 04/02/17 04:27 87 04/02/17 03:45 92 105/57 04/02/17 03:15 98.4 F 86 103 H 24 85/45 128/93 04/02/17 02:36 102 H 16 104/57 04/02/17 02:05 110 H 87/44 04/02/17 01:00 90 04/02/17 00:45 90 04/02/17 00:36 108 H 04/01/17 23:06 98.5 F 111 H 30 H 140/74 Pulse Ox 04/02/17 11:57 04/02/17 11:45 04/02/17 11:43 04/02/17 11:42 98 04/02/17 08:22 04/02/17 08:10 99 04/02/17 08:00 99 04/02/17 05:28 04/02/17 04:55 04/02/17 04:39 04/02/17 04:27 04/02/17 03:45 99 04/02/17 03:15 99 04/02/17 02:36 100 04/02/17 02:05 99 04/02/17 01:00 04/02/17 00:45 04/02/17 00:36 04/01/17 23:06 100 Intake and Output 04/02/17 04/02/17 04/02/17 06:59 14:59 22:59 Intake Total 338.292 Balance 338.292 Intake: Intake, IV Titration 140.292 Amount Diltiazem 125 mg In 60 Sodium Chloride 0.9% 100 ml @ 5 MG/HR 5 mls/hr IV .Q24H [facility] Rx#:[id number] Heparin Sod,Pork in 0.45% 80.292 NaCl 25,000 unit In 0.45 % NaCl 1 500ml.bag @ 12 UNITS/KG/HR 11.75 mls/hr IV .Q24H [facility] Rx#: [id number] Oral 198 Other: # Voids 0 Weight 48.988 kg 48.988 kg Patient Weight 04/03/17 06:59 Weight 48.988 kg PHYSICAL EXAMINATION: Patient is lying in the bed comfortably, mild distress, awake alert and oriented. Patient does have generalized wasting and cachexia. HEENT: Normocephalic. Neck is supple. Pupils reactive. Nostrils clear. Oral cavity is moist. Ears reveal no drainage. Neck reveals no JVD, carotid bruits, or thyromegaly. CHEST EXAMINATION: Trachea is central. Symmetrical expansion. Bilateral diminished air entry. No rhonchi or wheezing. CARDIAC: Normal S1, S2 with no gallops. No murmurs ABDOMEN: Soft. Bowel sounds normal. No organomegaly. No abdominal bruits. Extremities: reveal no edema. No clubbing or cyanosis Neurologically awake, alert, oriented x3 with well-coordinated movements. No focal deficits noted Skin: No rash or skin lesions. Psychiatric: Operative. Nonsuicidal Musculoskeletal: No joint swelling or deformity. Normal range of motion. Results CBC & Chem 7: 04/01/17 23:18 04/01/17 23:18 Labs: Abnormal Lab Results - Last 24 Hours (Table) 04/01/17 04/01/17 04/01/17 Range/Units 23:18 23:18 23:49 WBC 20.9 H (3.8-10.6) k/uL RBC 3.33 L (3.80-5.40) m/uL Hgb 10.6 L (11.4-16.0) gm/dL Hct 31.9 L (34.0-46.0) % Neutrophils # 18.3 H (1.3-7.7) k/uL Basophils # 0.3 H (0-0.2) k/uL APTT (22.0-30.0) sec VBG pH 7.44 H (7.31-7.41) VBG pCO2 62 H (37-51) mmHg VBG HCO3 42 H (24-28) mmol/L Sodium 118 L* (137-145) mmol/L Potassium 6.0 H (3.5-5.1) mmol/L Chloride 74 L* (98-107) mmol/L Carbon Dioxide 41 H* (22-30) mmol/L BUN 24 H (7-17) mg/dL Creatinine 0.50 L (0.52-1.04) mg/dL Glucose 170 H (74-99) mg/dL POC Glucose (mg/dL) (75-99) mg/dL AST 67 H (14-36) U/L 04/02/17 04/02/17 04/02/17 Range/Units 06:29 08:22 11:34 WBC (3.8-10.6) k/uL RBC (3.80-5.40) m/uL Hgb (11.4-16.0) gm/dL Hct (34.0-46.0) % Neutrophils # (1.3-7.7) k/uL Basophils # (0-0.2) k/uL APTT 42.1 H (22.0-30.0) sec VBG pH (7.31-7.41) VBG pCO2 (37-51) mmHg VBG HCO3 (24-28) mmol/L Sodium (137-145) mmol/L Potassium (3.5-5.1) mmol/L Chloride (98-107) mmol/L Carbon Dioxide (22-30) mmol/L BUN (7-17) mg/dL Creatinine (0.52-1.04) mg/dL Glucose (74-99) mg/dL POC Glucose (mg/dL) 156 H 160 H (75-99) mg/dL AST (14-36) U/L Thrombosis Risk Factor Assmnt - DVT/VTE Prophylaxis DVT/VTE Prophylaxis: Pharmacologic Prophylaxis ordered - Choose All That Apply Any of the Below Risk Factors Present?: Yes Each Factor Represents 1 point: Abnormal pulmonary function (COPD), Medical pt on bed rest, Swollen legs (current) Other Risk Factors: Yes Each Risk Factor Represents 3 Points: Age 75 years or older Thrombosis Risk Factor Assessment Total Risk Factor Score: 6 Thrombosis Risk Factor Assessment Level: High Risk Assessment and Plan Assessment: Acute on chronic hypoxic respiratory failure secondary to COPD exacerbation Recently diagnosed right upper lobe cavitating mass likely primary lung cancer Hyponatremia likely secondary to SIADH with possible bronchogenic carcinoma New onset atrial flutter with 2-1 went up a response Hypertension Hyperlipidemia Osteopenia Generalized medical debility and poor functional status Plan: Patient will be continued on fluid restriction and also restarted on demeclocycline. Patient is supposed to follow with radiation oncology. Patient is not a surgical candidate and it always patient will be continued on bronchodilators and IV steroids. She is on Cardizem drip for rate control. Pulmonary is following. Further recommendations based on the clinical course. Prognosis is poor. Time with Patient: Greater than 30
[2017-04-02] MEDS ORDERED: IPRATROPIUM-ALBUTEROL 3 ML NEB INHALATION PRN (23:51)
[2017-04-03] MEDS: HEPARIN SOD,PORK IN 0.45% NACL 25,000 UNIT in 0.45% NACL 1 500ML.BAG IV SCH ×2 (04:41→13:05)
[2017-04-03 06:08] LABS: Glucose,Whole Blood 159 mg/dL (75-99)
[2017-04-03] MEDS: INSULIN ASPART 100 UNIT/ML 1 ML 10 ML VIAL SQ SCH ×4 (06:23→21:30)
[2017-04-03] MEDS: DILTIAZEM 125 MG in SODIUM CHLORIDE 0.9% 100 ML IV SCH (06:24)
[2017-04-03 06:29] LABS: Basophils # (A) 0.1 k/uL (0-0.2); Basophils % (A) 1 %; Eosinophils % (A) 0 %; HCT 24.9 % (34.0-46.0); Lymphocytes # (A) 1.2 k/uL (1.0-4.8); Lymphocytes % (A) 6 %; MCH 31.7 pg (25.0-35.0); MCHC 32.1 g/dL (31.0-37.0); Mean Platelet Volume 7.2; Monocytes # (A) 0.7 k/uL (0-1.0); Monocytes % (A) 4 %; Neutrophils # (A) 16.6 k/uL (1.3-7.7); Neutrophils % (A) 88 %; Platelet Count 178 k/uL (150-450); RBC 2.52 m/uL (3.80-5.40); RDW 13.6 % (11.5-15.5); WBC 18.9 k/uL (3.8-10.6)
[2017-04-03 07:03] LABS: ALT 35 U/L (9-52); AST 33 U/L (14-36); Albumin 2.7 g/dL (3.5-5.0); Alkaline Phosphatase 44 U/L (38-126); Anion Gap 4 mmol/L; Blood Urea Nitrogen 18 mg/dL (7-17); Calcium 8.7 mg/dL (8.4-10.2); Carbon Dioxide 38 mmol/L (22-30); Chloride 86 mmol/L (98-107); Glucose 142 mg/dL (74-99); Sodium 128 mmol/L (137-145); Total Bilirubin 0.3 mg/dL (0.2-1.3); Total Protein 4.6 g/dL (6.3-8.2)
[2017-04-03] MEDS: IPRATROPIUM-ALBUTEROL 3 ML NEB INHALATION SCH ×4 (08:40→20:18)
[2017-04-03] MEDS: LISINOPRIL 20 MG TAB PO SCH (08:54)
[2017-04-03] MEDS: CALCIUM CARBONATE 500 MG CHEWABLE PO SCH (08:54)
[2017-04-03] MEDS: DEMECLOCYCLINE 150 MG TAB PO SCH ×2 (08:54→21:06)
[2017-04-03] MEDS: MULTIVITAMINS, THERA 1 EACH TAB PO SCH (08:55)
[2017-04-03] MEDS: methylPREDNISolone SOD SUCCI 125 MG/2 ML VIAL IV SCH (08:55)
[2017-04-03] MEDS: LEVOFLOXACIN 750 MG TAB PO SCH (08:55)
[2017-04-03] MEDS: FUROSEMIDE 20 MG TAB PO SCH (08:55)
[2017-04-03] MEDS ORDERED: NON-FORMULARY DRUG (Omega-3 Fatty Acids/Fish Oil [Fish Oil 1,000 Mg Softgel] 1 CAP) PO SCH (09:00)
[2017-04-03 12:21] LABS: Glucose,Whole Blood 226 mg/dL (75-99)
--- NOTE | 2017-04-03 15:20 | P.PN ---
<Sophia Turner M - Last Filed: 04/03/17 15:11> Subjective Progress Note Date: 04/03/17 Principal diagnosis: Acute on chronic hypoxic arrest secondary to COPD exacerbation, patient has severe end-stage COPD, FEV1 of less than 40%. A very pleasant 81-year-old here patient with known history of advanced COPD, chronic hypoxic respiratory failure and the recent diagnosis of a right lower lobe mass which is highly suggestive of lung cancer. 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 The patient was given demeclocycline and the patient was discharged home. After being discharged home for around 3 days the patient became steadily more short of breath and she presented back to the emergency department. She denies having any fever or chills. She denied having any chest pain. She had increased exertional dyspnea and even dyspnea at rest and she had also increased cough which was essentially nonproductive. She is on oxygen at 4 L of oxygen by nasal cannula at home. No change in mental status. No pleurisy. No hemoptysis. No vomiting. No diarrhea. On admission, the sodium level was again low at 118. She has been maintained on a combination of Incruse and Pulmicort Flexhaler in addition to Ventolin rescue inhaler on an albuterol and Atrovent about treatments around the clock. Note that the CAT scan of the chest that she had on 03/20/2017 showed a 6 cm mass in the right lung, in the right upper lobe which is somewhat cavitating. This was felt to be a representation of a neoplasm. During her earlier hospitalization, she was seen by radiation oncology, Dr. Jewel Silva, and she was supposed to start external beam radiation therapy to the right lung mass/review surgery. She is obviously not a candidate for any form of surgical interventions knowing that her COPD is advanced and her overall performance and functional status is poor. Based on her most recent pulmonary function tests from 2011, she has an FEV1 of 0.71 L which is 41% of predicted. A follow-up spirometry has not been done since. On 04/03/2017 patient is seen in follow-up. Lung sounds are diminished, no rhonchi, no wheezes auscultated. He is afebrile, vital signs are stable, denies worsening dyspnea. Blood Culture shows no growth at the 24-hour bernardo. Sodium has improved, and is up to 128 today, urine is 18, creatinine 0.49. WBC is trending down and is down to 18.9 today, hemoglobin is 68, patient is not having any signs of bleeding. Remains in 2:1 flutter, with a rate in the low 100s, continues on Cardizem drip at 5 mg per hour, and heparin drip at 11 units per kilo per hour. Objective - Vital Signs Vital signs: Vital Signs Temp 97.1 F L 04/03/17 11:53 Pulse 82 04/03/17 15:01 Resp 24 04/03/17 15:01 BP 121/57 04/03/17 11:53 Pulse Ox 95 04/03/17 11:53 Intake & Output 04/02/17 04/03/17 04/03/17 18:59 06:59 18:59 Intake Total 752.434 390.137 594.747 Output Total 400 600 Balance 752.434 -9.863 -5.253 Weight 48.988 kg 49.4 kg Intake: IV 187 180 .9 @ 10 120 Diltiazem 125 mg In 55 60 Sodium Chloride 0.9% 100 ml @ 5 MG/HR 5 mls/hr IV .Q24H [facility] Rx#:[id number] Heparin Sod,Pork in 0.45% 132 NaCl 25,000 unit In 0.45 % NaCl 1 500ml.bag @ 12 UNITS/KG/HR 11.75 mls/hr IV .Q24H [facility] Rx#: [id number] Intake, IV Titration 234.434 203.137 54.747 Amount Diltiazem 125 mg In 60 Sodium Chloride 0.9% 100 ml @ 5 MG/HR 5 mls/hr IV .Q24H [facility] Rx#:[id number] Heparin Sod,Pork in 0.45% 174.434 203.137 54.747 NaCl 25,000 unit In 0.45 % NaCl 1 500ml.bag @ 12 UNITS/KG/HR 11.75 mls/hr IV .Q24H [facility] Rx#: [id number] Oral 518 360 Output: Urine 400 600 Other: Voiding Method Bedside Commode Bedside Commode # Voids 1 # Bowel Movements 1 - Exam Physical Exam: Revealed an 81-year-old female, frail looking, chronically ill- looking, noted to have dyspnea at rest and with any activity. HEENT:Neck was supple and without jugular venous distension, thyromegaly, or carotid bruits. Carotids were easily palpable bilaterally. There was no adenopathy. Chest: [Diminished breath sound bilaterally, minimal crackles at the right base , no rhonchi, no wheezes. Symmetrical chest expansion was noted. No chest wall tenderness Cardiac Exam: Cardiac exam revealed the PMI to be normally situated and sized. The rhythm was regular and no extrasystoles were noted during several minutes of auscultation. The first and second heart sounds were normal and physiologic splitting of the second heart sound was noted. There were no murmurs, rubs, clicks, or gallops. Abdomen: Abdominal exam revealed normal bowel sounds. The abdomen was soft, non- tender, and without masses, organomegaly, or appreciable enlargement of the abdominal aorta. Extremities: [No clubbing, 1+ bipedal edema, no cyanosis.] Neurological Exam: [No focal neurologic deficit.] Psychiatric: Normal mood affect and normal mental status examination. Lymphatic: No lymphadenopathy was appreciated. Musculoskeletal: Generally weak, no deformities, normal range of motion. - Labs CBC & Chem 7: 04/03/17 05:50 04/03/17 05:50 Labs: Abnormal Lab Results - Last 24 Hours (Table) 04/02/17 04/02/17 04/02/17 Range/Units 15:23 16:37 21:05 WBC (3.8-10.6) k/uL RBC (3.80-5.40) m/uL Hgb (11.4-16.0) gm/dL Hct (34.0-46.0) % Neutrophils # (1.3-7.7) k/uL APTT 72.2 H (22.0-30.0) sec Sodium (137-145) mmol/L Chloride (98-107) mmol/L Carbon Dioxide (22-30) mmol/L BUN (7-17) mg/dL Creatinine (0.52-1.04) mg/dL Glucose (74-99) mg/dL POC Glucose (mg/dL) 155 H 210 H (75-99) mg/dL Total Protein (6.3-8.2) g/dL Albumin (3.5-5.0) g/dL 04/03/17 04/03/17 04/03/17 Range/Units 05:50 05:50 05:50 WBC 18.9 H (3.8-10.6) k/uL RBC 2.52 L (3.80-5.40) m/uL Hgb 8.0 L D (11.4-16.0) gm/dL Hct 24.9 L (34.0-46.0) % Neutrophils # 16.6 H (1.3-7.7) k/uL APTT 100.7 H* (22.0-30.0) sec Sodium 128 L (137-145) mmol/L Chloride 86 L (98-107) mmol/L Carbon Dioxide 38 H (22-30) mmol/L BUN 18 H (7-17) mg/dL Creatinine 0.49 L (0.52-1.04) mg/dL Glucose 142 H (74-99) mg/dL POC Glucose (mg/dL) (75-99) mg/dL Total Protein 4.6 L (6.3-8.2) g/dL Albumin 2.7 L (3.5-5.0) g/dL 04/03/17 04/03/17 Range/Units 06:06 11:52 WBC (3.8-10.6) k/uL RBC (3.80-5.40) m/uL Hgb (11.4-16.0) gm/dL Hct (34.0-46.0) % Neutrophils # (1.3-7.7) k/uL APTT (22.0-30.0) sec Sodium (137-145) mmol/L Chloride (98-107) mmol/L Carbon Dioxide (22-30) mmol/L BUN (7-17) mg/dL Creatinine (0.52-1.04) mg/dL Glucose (74-99) mg/dL POC Glucose (mg/dL) 159 H 226 H (75-99) mg/dL Total Protein (6.3-8.2) g/dL Albumin (3.5-5.0) g/dL Microbiology - Last 24 Hours (Table) 04/01/17 23:18 Blood Culture - Preliminary Blood No Growth after 24 hours Assessment and Plan Plan: Assessment: 1 Acute on chronic hypoxic respiratory failure secondary to COPD exacerbation, the patient also has severe end-stage COPD, FEV1 is less than 40%. 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 The patient was supposed to undergo radiosurgery through radiation oncology. The patient obviously is not a candidate for any surgical resection due to poor baseline performance and functional status and poor and advanced lung disease. 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 The patient will be restarted back on the rectus lidocaine 3 new onset atrial flutter with 2 to 1 block and rapid ventricular response 4 hypertension 5 hyperlipidemia 6 osteopenia 7 cor pulmonale. Plan Continue demeclocycline, fluid restriction. Sodium is improving, The low sodium level is likely paraneoplastic related to lung cancer. Treatment of an acute COPD exacerbation with a combination of bronchodilators and steroids. Continue Cardizem drip for rate control. Continued IV heparin. Echocardiogram. I performed a history & physical examination of the patient and discussed their management with my nurse practitioner, Sophia Turner. I reviewed the nurse practitioner's note and agree with the documented findings and plan of care. Lung sounds are diminished. The findings and the impression was discussed with the patient. I attest to the documentation by the nurse practitioner. Time with Patient: Less than 30 <Emani Pena - Last Filed: 04/03/17 16:17> Objective - Vital Signs Vital signs: Vital Signs Temp 96.7 F L 04/03/17 15:26 Pulse 87 04/03/17 16:04 Resp 18 04/03/17 16:04 BP 112/62 04/03/17 15:26 Pulse Ox 95 04/03/17 16:04 Intake & Output 04/02/17 04/03/17 04/03/17 18:59 06:59 18:59 Intake Total 752.434 390.137 619.877 Output Total 400 600 Balance 752.434 -9.863 19.877 Weight 48.988 kg 49.4 kg Intake: IV 187 180 .9 @ 10 120 Diltiazem 125 mg In 55 60 Sodium Chloride 0.9% 100 ml @ 5 MG/HR 5 mls/hr IV .Q24H [facility] Rx#:[id number] Heparin Sod,Pork in 0.45% 132 NaCl 25,000 unit In 0.45 % NaCl 1 500ml.bag @ 12 UNITS/KG/HR 11.75 mls/hr IV .Q24H [facility] Rx#: [id number] Intake, IV Titration 234.434 203.137 79.877 Amount Diltiazem 125 mg In 60 Sodium Chloride 0.9% 100 ml @ 5 MG/HR 5 mls/hr IV .Q24H [facility] Rx#:[id number] Heparin Sod,Pork in 0.45% 174.434 203.137 79.877 NaCl 25,000 unit In 0.45 % NaCl 1 500ml.bag @ 12 UNITS/KG/HR 11.75 mls/hr IV .Q24H [facility] Rx#: [id number] Oral 518 360 Output: Urine 400 600 Other: Voiding Method Bedside Commode Bedside Commode # Voids 1 # Bowel Movements 1 - Labs CBC & Chem 7: 04/03/17 05:50 04/03/17 05:50 Labs: Abnormal Lab Results - Last 24 Hours (Table) 04/02/17 04/02/17 04/03/17 Range/Units 16:37 21:05 05:50 WBC 18.9 H (3.8-10.6) k/uL RBC 2.52 L (3.80-5.40) m/uL Hgb 8.0 L D (11.4-16.0) gm/dL Hct 24.9 L (34.0-46.0) % Neutrophils # 16.6 H (1.3-7.7) k/uL APTT (22.0-30.0) sec Sodium (137-145) mmol/L Chloride (98-107) mmol/L Carbon Dioxide (22-30) mmol/L BUN (7-17) mg/dL Creatinine (0.52-1.04) mg/dL Glucose (74-99) mg/dL POC Glucose (mg/dL) 155 H 210 H (75-99) mg/dL Total Protein (6.3-8.2) g/dL Albumin (3.5-5.0) g/dL 04/03/17 04/03/17 04/03/17 Range/Units 05:50 05:50 06:06 WBC (3.8-10.6) k/uL RBC (3.80-5.40) m/uL Hgb (11.4-16.0) gm/dL Hct (34.0-46.0) % Neutrophils # (1.3-7.7) k/uL APTT 100.7 H* (22.0-30.0) sec Sodium 128 L (137-145) mmol/L Chloride 86 L (98-107) mmol/L Carbon Dioxide 38 H (22-30) mmol/L BUN 18 H (7-17) mg/dL Creatinine 0.49 L (0.52-1.04) mg/dL Glucose 142 H (74-99) mg/dL POC Glucose (mg/dL) 159 H (75-99) mg/dL Total Protein 4.6 L (6.3-8.2) g/dL Albumin 2.7 L (3.5-5.0) g/dL 04/03/17 04/03/17 Range/Units 11:52 14:16 WBC (3.8-10.6) k/uL RBC (3.80-5.40) m/uL Hgb (11.4-16.0) gm/dL Hct (34.0-46.0) % Neutrophils # (1.3-7.7) k/uL APTT 59.6 H (22.0-30.0) sec Sodium (137-145) mmol/L Chloride (98-107) mmol/L Carbon Dioxide (22-30) mmol/L BUN (7-17) mg/dL Creatinine (0.52-1.04) mg/dL Glucose (74-99) mg/dL POC Glucose (mg/dL) 226 H (75-99) mg/dL Total Protein (6.3-8.2) g/dL Albumin (3.5-5.0) g/dL Microbiology - Last 24 Hours (Table) 04/01/17 23:18 Blood Culture - Preliminary Blood No Growth after 24 hours Assessment and Plan Plan: This is a joint evaluations was done along with an expectation or. The patient' s sodium level is improving. The patient is less short of breath and the patient will be taken off the IV Solu Medrol start on prednisone burst taper. Treatment of a flutter per cardiology. The patient remains on a Cardizem drip and IV heparin. She will need rehabilitation and following that outpatient radiosurgery regarding her right upper lobe cavitating mass. There is a joint evaluation. I tested above-mentioned information.
[2017-04-03 17:06] LABS: Glucose,Whole Blood 110 mg/dL (75-99)
--- NOTE | 2017-04-03 18:12 | P.PN ---
Subjective Progress Note Date: 04/03/17 Progress note being dictated for Dr. Eduardo. Interval history: Patient is a 81-year-old female with known history of COPD on 4 L home oxygen, right upper lobe mass, hypertension, hyperlipidemia and generalized medical debility came to ER as a increased shortness of breath and cough as well as generalized weakness. Apparently patient had fall 2 at home. Otherwise patient denied any nausea vomiting or abdominal pain no diarrhea. Patient was recently admitted to the hospital with acute COPD exacerbation and hyponatremia.. Patient had CT chest at the time showed right upper lobe mass. 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 Patient presented back to the hospital after 3 days at home. Denied any hematemesis or melena. Patient was also found to have atrial flutter and was started on Cardizem drip and heparin IV. Otherwise patient is having generalized weakness and shortness of breath with minimal exertion. Patient was supposed to follow with radiation oncology. Patient is not a surgical candidate due to advanced COPD and generalized medical debility and poor functional status. Sodium level 118 on admission Patient does have leukocytosis Chest x-ray showed COPD and right upper lobe mass. No changes compared to previous study. Review of Systems Constitutional: Patient denies any fever or chills . Does have generalized weakness or weight loss and fatigue. Abdomen: Patient denied nausea vomiting and diarrhea and abdominal pain. Cardiovascular: Patient denies any chest pain or short of breath no palpitations. Respiratory: Cough with minimal sputum production and shortness of breath. \ Neurologic: Patient denied any numbness or tingling headache. Musculoskeletal: Patient denies any complaints of joint swelling or deformity. Skin: Negative Psychiatric: Negative Endocrine: No heat or cold intolerance. No recent weight gain. Genitourinary: No dysuria or hematuria. All other 14 point ROS negative except the above Patient is a poor historian due to underlying clinical condition. 04/03/17 sodium improving, up to 128. Leukocytosis improving, WBC down to 18.9 preliminary blood cultures negative, afebrile. Maintained on Cardizem and heparin drips, telemetry atrial flutter, heart rates low 100s. Objective - Vital Signs Vital signs: Vital Signs Temp 96.7 F L 04/03/17 15:26 Pulse 90 04/03/17 16:14 Resp 18 04/03/17 16:04 BP 112/62 04/03/17 15:26 Pulse Ox 95 04/03/17 16:04 Intake & Output 04/02/17 04/03/17 04/03/17 18:59 06:59 18:59 Intake Total 752.434 390.137 699.877 Output Total 400 600 Balance 752.434 -9.863 99.877 Weight 48.988 kg 49.4 kg Intake: IV 187 180 .9 @ 10 120 Diltiazem 125 mg In 55 60 Sodium Chloride 0.9% 100 ml @ 5 MG/HR 5 mls/hr IV .Q24H [facility] Rx#:[id number] Heparin Sod,Pork in 0.45% 132 NaCl 25,000 unit In 0.45 % NaCl 1 500ml.bag @ 12 UNITS/KG/HR 11.75 mls/hr IV .Q24H [facility] Rx#: [id number] Intake, IV Titration 234.434 203.137 79.877 Amount Diltiazem 125 mg In 60 Sodium Chloride 0.9% 100 ml @ 5 MG/HR 5 mls/hr IV .Q24H [facility] Rx#:[id number] Heparin Sod,Pork in 0.45% 174.434 203.137 79.877 NaCl 25,000 unit In 0.45 % NaCl 1 500ml.bag @ 12 UNITS/KG/HR 11.75 mls/hr IV .Q24H [facility] Rx#: [id number] Oral 518 [id number] Output: Urine 400 600 Other: Voiding Method Bedside Commode Bedside Commode # Voids 1 # Bowel Movements 0 - Exam Patient is lying in the bed comfortably, mild distress, awake alert and oriented. Patient does have generalized wasting and cachexia. HEENT: Normocephalic. Neck is supple. Pupils reactive. Nostrils clear. Oral cavity is moist. Ears reveal no drainage. Neck reveals no JVD, carotid bruits, or thyromegaly. CHEST EXAMINATION: Trachea is central. Symmetrical expansion. Bilateral diminished air entry. No rhonchi or wheezing. CARDIAC: Normal S1, S2 with no gallops. No murmurs ABDOMEN: Soft. Bowel sounds normal. No organomegaly. No abdominal bruits. Extremities: reveal no edema. No clubbing or cyanosis Neurologically awake, alert, oriented x3 with well-coordinated movements. No focal deficits noted Skin: No rash or skin lesions. Psychiatric: Operative. Nonsuicidal Musculoskeletal: No joint swelling or deformity. Normal range of motion. - Labs CBC & Chem 7: 04/03/17 05:50 04/03/17 05:50 Labs: Abnormal Lab Results - Last 24 Hours (Table) 04/02/17 04/03/17 04/03/17 Range/Units 21:05 05:50 05:50 WBC 18.9 H (3.8-10.6) k/uL RBC 2.52 L (3.80-5.40) m/uL Hgb 8.0 L D (11.4-16.0) gm/dL Hct 24.9 L (34.0-46.0) % Neutrophils # 16.6 H (1.3-7.7) k/uL APTT (22.0-30.0) sec Sodium 128 L (137-145) mmol/L Chloride 86 L (98-107) mmol/L Carbon Dioxide 38 H (22-30) mmol/L BUN 18 H (7-17) mg/dL Creatinine 0.49 L (0.52-1.04) mg/dL Glucose 142 H (74-99) mg/dL POC Glucose (mg/dL) 210 H (75-99) mg/dL Total Protein 4.6 L (6.3-8.2) g/dL Albumin 2.7 L (3.5-5.0) g/dL 04/03/17 04/03/17 04/03/17 Range/Units 05:50 06:06 11:52 WBC (3.8-10.6) k/uL RBC (3.80-5.40) m/uL Hgb (11.4-16.0) gm/dL Hct (34.0-46.0) % Neutrophils # (1.3-7.7) k/uL APTT 100.7 H* (22.0-30.0) sec Sodium (137-145) mmol/L Chloride (98-107) mmol/L Carbon Dioxide (22-30) mmol/L BUN (7-17) mg/dL Creatinine (0.52-1.04) mg/dL Glucose (74-99) mg/dL POC Glucose (mg/dL) 159 H 226 H (75-99) mg/dL Total Protein (6.3-8.2) g/dL Albumin (3.5-5.0) g/dL 04/03/17 04/03/17 Range/Units 14:16 16:44 WBC (3.8-10.6) k/uL RBC (3.80-5.40) m/uL Hgb (11.4-16.0) gm/dL Hct (34.0-46.0) % Neutrophils # (1.3-7.7) k/uL APTT 59.6 H (22.0-30.0) sec Sodium (137-145) mmol/L Chloride (98-107) mmol/L Carbon Dioxide (22-30) mmol/L BUN (7-17) mg/dL Creatinine (0.52-1.04) mg/dL Glucose (74-99) mg/dL POC Glucose (mg/dL) 110 H (75-99) mg/dL Total Protein (6.3-8.2) g/dL Albumin (3.5-5.0) g/dL Microbiology - Last 24 Hours (Table) 04/01/17 23:18 Blood Culture - Preliminary Blood No Growth after 24 hours Assessment and Plan Assessment: Acute on chronic hypoxic respiratory failure secondary to COPD exacerbation Recently diagnosed right upper lobe cavitating mass likely primary lung cancer Hyponatremia likely secondary to SIADH with possible bronchogenic carcinoma New onset atrial flutter with 2-1 went up a response Hypertension Hyperlipidemia Osteopenia Generalized medical debility and poor functional status Plan: Continue on current medication regime , Cardizem drip, nebulized bronchodilators, steroids, monitoring and symptomatic treatment.maintain fluid restriction, demeclocycline. Steroids tapered to oral as per pulmonary. Follow closely with multiple consults. Outpatient radiation oncologist f/u. Prognosis guarded given multiple complex medical issues. Further recommendations to follow . The impression and plan of care has been dictated as directed. : I performed a history and examination of this patient, discussed the same with the dictator. I agree with the dictator's note ,documented as a scribe. Any additional findings or plans will be noted.
[2017-04-03] MEDS: ATORVASTATIN 10 MG TAB PO SCH (21:06)
[2017-04-03 21:16] LABS: Glucose,Whole Blood 153 mg/dL (75-99)
[2017-04-04] MEDS: DILTIAZEM 125 MG in SODIUM CHLORIDE 0.9% 100 ML IV SCH (00:09)
[2017-04-04 06:15] LABS: Glucose,Whole Blood 118 mg/dL (75-99)
[2017-04-04] MEDS: INSULIN ASPART 100 UNIT/ML 1 ML 10 ML VIAL SQ SCH ×4 (06:59→21:36)
[2017-04-04 07:13] LABS: Basophils # (A) 0.2 k/uL (0-0.2); Basophils % (A) 1 %; Eosinophils % (A) 0 %; HCT 24.4 % (34.0-46.0); HGB 7.6 gm/dL (11.4-16.0); Lymphocytes # (A) 1.4 k/uL (1.0-4.8); Lymphocytes % (A) 7 %; MCH 30.8 pg (25.0-35.0); MCHC 31.2 g/dL (31.0-37.0); MCV 98.5 fL (80.0-100.0); Mean Platelet Volume 6.8; Monocytes # (A) 0.8 k/uL (0-1.0); Monocytes % (A) 4 %; Neutrophils # (A) 16.6 k/uL (1.3-7.7); Neutrophils % (A) 86 %; Platelet Count 178 k/uL (150-450); RBC 2.48 m/uL (3.80-5.40); RDW 13.4 % (11.5-15.5); WBC 19.3 k/uL (3.8-10.6)
[2017-04-04] MEDS: CALCIUM CARBONATE 500 MG CHEWABLE PO SCH (08:10)
[2017-04-04] MEDS: LISINOPRIL 20 MG TAB PO SCH (08:10)
[2017-04-04] MEDS: LEVOFLOXACIN 750 MG TAB PO SCH (08:10)
[2017-04-04] MEDS: DEMECLOCYCLINE 150 MG TAB PO SCH ×2 (08:10→20:01)
[2017-04-04] MEDS: FUROSEMIDE 20 MG TAB PO SCH (08:11)
[2017-04-04] MEDS: predniSONE 20 MG TAB PO SCH (08:11)
--- NOTE | 2017-04-04 08:21 | P.CRDCN ---
History of Present Illness Consult date: 04/04/17 Requesting physician: Jeff dEuardo Reason for Consult (text): Arrhythmia Chief complaint: Shortness of breath History of present illness: This is a pleasant 81-year-old female with history of hypertension, hyperlipidemia, advanced COPD, recent diagnosis of a right lower lobe mass highly suggestive of lung cancer, who was recently in the hospital with an exacerbation of COPD as well as hyponatremia. She represented to the hospital getting with symptoms of shortness of breath. She denies any chest discomfort, no palpitations. An EKG was performed on admission here which was read as atrial flutter, for this reason a cardiology consultation was requested. Upon review of the EKG as well as subsequent EKGs and rhythm strips, it appears the patient was in a multifocal atrial tachycardia. Chest x-ray on admission showed COPD with a right pulmonary mass, no significant change as compared with prior exam. No heart failure. Blood Pressure 108/50, heart rate in the 90s, temperature 97.5, 98% on 4 L of oxygen. White blood cell count 19.3, hemoglobin 7.6, sodium 128, potassium 4.0, chloride 86, CO2 38, BUN 18, and creatinine 0.4. Sodium on this most recent admission 118. The time of my examination this morning, patient is sitting up at her bedside, she states that her breathing has significantly improved already. Past Medical History Past Medical History: COPD, Hyperlipidemia, Hypertension, Osteoarthritis (OA), Pneumonia Additional Past Medical History / Comment(s): COPD, right upper lobe mass, hypertension, hyperlipidemia, osteoarthritis, osteopenia , cor pulmonale, chronic hypoxic respiratory failure on oxygen at 4 L/m nasal cannula. History of Any Multi-Drug Resistant Organisms: None Reported Past Surgical History: Hysterectomy, Orthopedic Surgery Additional Past Surgical History / Comment(s): foot surgery x 3 Past Anesthesia/Blood Transfusion Reactions: No Reported Reaction Past Psychological History: Anxiety Smoking Status: Former smoker Past Alcohol Use History: None Reported Past Drug Use History: None Reported - Past Family History Mother Family Medical History: Cancer Daughter(s) Family Medical History: Cancer Sister(s) Family Medical History: CVA/TIA Medications and Allergies Home Medications Medication Instructions Recorded Confirmed Type Budesonide [Pulmicort Flexhaler] 2 puff INHALATION RT-BID 03/23/17 04/01/17 History Calcium Carbonate [Calcium] 600 mg PO QAM 03/23/17 04/01/17 History Furosemide [Lasix] 20 mg PO QAM 03/23/17 04/01/17 History Lisinopril [Zestril] 20 mg PO DAILY 03/23/17 04/01/17 History Multivitamins, Thera [Multivitamin 1 tab PO DAILY 03/23/17 04/01/17 History (formulary)] [place]-3 Fatty Acids/Fish Oil [Fish 1 cap PO QAM 03/23/17 04/01/17 History Oil 1,000 mg Softgel] Simvastatin [Zocor] 20 mg PO HS 03/23/17 04/01/17 History Umeclidinium [place] [Incruse 1 puff INHALATION RT-DAILY 03/23/17 04/01/17 History Ellipta] Demeclocycline [Declomycin] 300 mg PO BID #60 tab 03/28/17 04/01/17 Rx Levofloxacin [Levaquin] 750 mg PO DAILY #10 tab 03/28/17 04/01/17 Rx predniSONE See Taper PO DAILY #30 tab 03/28/17 04/01/17 Rx Albuterol Inhaler [Ventolin Hfa 1 - 2 puff INHALATION RT-Q4H PRN 04/01/17 History Inhaler] Allergies Allergy/AdvReac Type Severity Reaction Status Date / Time chocolate flavor Allergy Dyspnea Verified 04/01/17 23:36 codeine AdvReac stomach & Verified 04/01/17 23:36 bowel issues perfume AdvReac Dyspnea Verified 04/01/17 23:36 Band-Aid AdvReac Rash/Hives Uncoded 03/23/17 05:48 Physical Exam Vitals: Vital Signs Temp Pulse Pulse Pulse Resp BP Pulse Ox 04/04/17 04:00 97.8 F 89 82 19 119/56 95 04/04/17 00:00 97.5 F L 91 21 108/53 98 04/03/17 20:28 92 04/03/17 20:18 92 04/03/17 20:00 98.0 F 90 20 115/53 99 04/03/17 16:14 90 04/03/17 16:04 87 18 95 04/03/17 15:26 96.7 F L 89 24 112/62 95 04/03/17 15:01 82 24 04/03/17 13:28 106 H 04/03/17 13:18 104 H 04/03/17 11:53 97.1 F L 82 24 121/57 95 04/03/17 11:03 95 28 H 04/03/17 08:51 102 H 04/03/17 08:41 100 Intake and Output 04/03/17 04/04/17 04/04/17 22:59 06:59 14:59 Intake Total 105.13 88.75 Output Total 300 Balance -194.87 88.75 Intake: Intake, IV Titration 25.13 88.75 Amount Diltiazem 125 mg In 88.75 Sodium Chloride 0.9% 100 ml @ 5 MG/HR 5 mls/hr IV .Q24H [facility] Rx#:[id number] Heparin Sod,Pork in 0.45% 25.13 NaCl 25,000 unit In 0.45 % NaCl 1 500ml.bag @ 12 UNITS/KG/HR 11.75 mls/hr IV .Q24H [facility] Rx#: [id number] Oral 80 Output: Urine 300 Other: Voiding Method Bedside Commode Bedside Commode # Voids 1 2 # Bowel Movements 1 Weight 50.5 kg PHYSICAL EXAMINATION: HEENT: Head is atraumatic, normocephalic. Pupils equal, round. Neck is supple. There is no elevated jugular venous pressure. HEART EXAMINATION: Heart S1, S2 normal. No murmur or gallop heard. CHEST EXAMINATION: Lungs reveal decreased air exchange throughout with fine crackles to the bases. ABDOMEN: Soft, nontender. Bowel sounds are heard. No organomegaly noted. EXTREMITIES: 2+ peripheral pulses with no evidence of peripheral edema and no calf tenderness noted. NEUROLOGIC patient is awake, alert and oriented -3. . Results 04/04/17 06:35 04/03/17 05:50 Coagulation 04/03/17 04/04/17 Range/Units 14:16 06:35 APTT 59.6 H 75.8 H (22.0-30.0) sec CBC 04/04/17 Range/Units 06:35 WBC 19.3 H (3.8-10.6) k/uL RBC 2.48 L (3.80-5.40) m/uL Hgb 7.6 L (11.4-16.0) gm/dL Hct 24.4 L (34.0-46.0) % Plt Count 178 (150-450) k/uL Current Medications Generic Name Dose Route Start Last Admin Trade Name Freq PRN Reason Stop Dose Admin Albuterol/Ipratropium 3 ml 04/02/17 23:51 Duoneb 0.5 Mg-3 Mg/3 Ml Soln INHALATION RT-QID PRN Shortness Of Breath Or Wheezing Albuterol/Ipratropium 3 ml 04/03/17 08:00 04/03/17 20:18 Duoneb 0.5 Mg-3 Mg/3 Ml Soln INHALATION 3 ml RT-QID [facility] Administration Atorvastatin Calcium 10 mg 04/02/17 21:00 04/03/17 21:06 Lipitor PO 10 mg HS [facility] Administration Calcium Carbonate/Glycine 500 mg 04/03/17 09:00 04/03/17 08:54 Tums PO 500 mg QAM [facility] Administration Demeclocycline HCl 300 mg 04/02/17 09:00 04/03/17 21:06 Declomycin PO 300 mg BID [facility] Administration Furosemide 20 mg 04/03/17 09:00 04/03/17 08:55 Lasix PO 20 mg QAM [facility] Administration Heparin Sodium (Porcine) 0 unit 04/02/17 02:05 Heparin IV PER PROTOCOL PRN Low PTT Protocol Hydromorphone HCl 0.5 mg 04/02/17 02:06 Dilaudid IVP Q3HR PRN Moderate Pain Heparin Sodium/Sodium Chloride 500 mls @ 11.75 mls/hr 04/02/17 02:15 15:25 25,000 unit/ Sodium Chloride IV 11 units/kg/hr .Q24H [facility] 10.77 mls/hr Protocol Titration 12 UNITS/KG/HR Diltiazem HCl 125 mg/ Sodium 125 mls @ 5 mls/hr 04/02/17 23:45 04/04/17 00:09 Chloride IV 5 mg/hr .Q24H [facility] 5 mls/hr Protocol Administration 5 MG/HR Insulin Aspart 0 unit 04/02/17 07:30 04/04/17 06:59 Novolog SQ Not Given ACHS [facility] Protocol Levofloxacin 750 mg 04/02/17 09:00 04/03/17 08:55 Levaquin PO 750 mg DAILY [facility] Administration Lisinopril 20 mg 04/03/17 09:00 04/03/17 08:54 Zestril PO 20 mg DAILY [facility] Administration Multivitamins 1 each 04/03/17 12:00 04/03/17 08:55 Theragran PO 1 each 1200 [facility] Administration Naloxone HCl 0.2 mg 04/02/17 02:06 Narcan IV Q2M PRN Opioid Reversal Prednisone 40 mg 04/04/17 09:00 PO DAILY [facility] Intake and Output 04/03/17 04/04/17 04/04/17 22:59 06:59 14:59 Intake Total 105.13 88.75 Output Total 300 Balance -194.87 88.75 Intake: Intake, IV Titration 25.13 88.75 Amount Diltiazem 125 mg In 88.75 Sodium Chloride 0.9% 100 ml @ 5 MG/HR 5 mls/hr IV .Q24H [facility] Rx#:[id number] Heparin Sod,Pork in 0.45% 25.13 NaCl 25,000 unit In 0.45 % NaCl 1 500ml.bag @ 12 UNITS/KG/HR 11.75 mls/hr IV .Q24H [facility] Rx#: [id number] Oral 80 Output: Urine 300 Other: Voiding Method Bedside Commode Bedside Commode # Voids 1 2 # Bowel Movements 1 Weight 50.5 kg 04/04/17 06:35 04/03/17 05:50 EKG Interpretations (text) She'll EKG shows a multifocal atrial tachycardia. 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 Discontinue IV heparin, patient does not require anticoagulation for multifocal atrial tachycardia, we will discontinue Cardizem drip and start the patient on oral Cardizem. Her the recommendations to follow. DNP note has been reviewed, I agree with a documented findings and plan of care. Patient was seen and examined.
[2017-04-04] MEDS: IPRATROPIUM-ALBUTEROL 3 ML NEB INHALATION SCH ×4 (09:18→19:20)
[2017-04-04] MEDS: DILTIAZEM ORAL 30 MG TAB PO SCH ×3 (09:57→21:38)
[2017-04-04] MEDS: MULTIVITAMINS, THERA 1 EACH TAB PO SCH (12:34)
[2017-04-04 12:38] LABS: Glucose,Whole Blood 117 mg/dL (75-99)
--- NOTE | 2017-04-04 14:10 | P.PN ---
<Sophia Turner M - Last Filed: 04/04/17 14:03> Subjective Progress Note Date: 04/04/17 Principal diagnosis: Acute on chronic hypoxic arrest secondary to COPD exacerbation, patient has severe end-stage COPD, FEV1 of less than 40%. A very pleasant 81-year-old here patient with known history of advanced COPD, chronic hypoxic respiratory failure and the recent diagnosis of a right lower lobe mass which is highly suggestive of lung cancer. 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 The patient was given demeclocycline and the patient was discharged home. After being discharged home for around 3 days the patient became steadily more short of breath and she presented back to the emergency department. She denies having any fever or chills. She denied having any chest pain. She had increased exertional dyspnea and even dyspnea at rest and she had also increased cough which was essentially nonproductive. She is on oxygen at 4 L of oxygen by nasal cannula at home. No change in mental status. No pleurisy. No hemoptysis. No vomiting. No diarrhea. On admission, the sodium level was again low at 118. She has been maintained on a combination of Incruse and Pulmicort Flexhaler in addition to Ventolin rescue inhaler on an albuterol and Atrovent about treatments around the clock. Note that the CAT scan of the chest that she had on 03/20/2017 showed a 6 cm mass in the right lung, in the right upper lobe which is somewhat cavitating. This was felt to be a representation of a neoplasm. During her earlier hospitalization, she was seen by radiation oncology, Dr. Jewel Silva, and she was supposed to start external beam radiation therapy to the right lung mass/review surgery. She is obviously not a candidate for any form of surgical interventions knowing that her COPD is advanced and her overall performance and functional status is poor. Based on her most recent pulmonary function tests from 2011, she has an FEV1 of 0.71 L which is 41% of predicted. A follow-up spirometry has not been done since. On 04/03/2017 patient is seen in follow-up. Lung sounds are diminished, no rhonchi, no wheezes auscultated. He is afebrile, vital signs are stable, denies worsening dyspnea. Blood Culture shows no growth at the 24-hour bernardo. Sodium has improved, and is up to 128 today, urine is 18, creatinine 0.49. WBC is trending down and is down to 18.9 today, hemoglobin is 68, patient is not having any signs of bleeding. Remains in 2:1 flutter, with a rate in the low 100s, continues on Cardizem drip at 5 mg per hour, and heparin drip at 11 units per kilo per hour. On 04/04/2017 patient seen in follow-up. Doing well, lung sounds are positive for a few rhonchi, diminished overall. She denies any worsening dyspnea, no wheezes, or rales auscultated. She is on 4-5 L per nasal cannula, with O2 sat at 96%. Remains afebrile, hemodynamically stable. Blood culture is negative for growth after 48 hours. Today's labs were reviewed reviewed, WBC is stable at 19.3, hemoglobin is 7.6, patient remains on heparin drip, no BMP was done today. Patient denies any specific complaints, remains stable from pulmonary standpoint. IV Cardizem was switched to oral Cardizem at 30 mg by mouth 3 times a day per cardiology. Patient remains on Declomycin, continues on Levaquin, DuoNeb nebulized treatments, she was switched to oral prednisone today. Objective - Vital Signs Vital signs: Vital Signs Temp 97.4 F L 04/04/17 08:00 Pulse 96 04/04/17 13:07 Resp 20 04/04/17 08:00 BP 150/56 04/04/17 08:00 Pulse Ox 96 04/04/17 08:00 Intake & Output 04/03/17 04/04/17 04/04/17 18:59 06:59 18:59 Intake Total 699.877 88.75 180.756 Output Total 600 300 Balance 99.877 -211.25 180.756 Weight 50.5 kg Intake: IV 180 .9 @ 10 120 Diltiazem 125 mg In 60 Sodium Chloride 0.9% 100 ml @ 5 MG/HR 5 mls/hr IV .Q24H [facility] Rx#:[id number] Intake, IV Titration 79.877 88.75 180.756 Amount Diltiazem 125 mg In 88.75 Sodium Chloride 0.9% 100 ml @ 5 MG/HR 5 mls/hr IV .Q24H [facility] Rx#:[id number] Heparin Sod,Pork in 0.45% 79.877 180.756 NaCl 25,000 unit In 0.45 % NaCl 1 500ml.bag @ 12 UNITS/KG/HR 11.75 mls/hr IV .Q24H [facility] Rx#: [id number] Oral 440 Output: Urine 600 300 Other: Voiding Method Bedside Commode Bedside Commode # Voids 1 2 # Bowel Movements 0 1 - Exam Physical Exam: Revealed an 81-year-old female, frail looking, chronically ill- looking, noted to have dyspnea at rest and with any activity. HEENT:Neck was supple and without jugular venous distension, thyromegaly, or carotid bruits. Carotids were easily palpable bilaterally. There was no adenopathy. Chest: [Diminished breath sound bilaterally, minimal crackles at the right base , no rhonchi, no wheezes. Symmetrical chest expansion was noted. No chest wall tenderness Cardiac Exam: Cardiac exam revealed the PMI to be normally situated and sized. The rhythm was regular and no extrasystoles were noted during several minutes of auscultation. The first and second heart sounds were normal and physiologic splitting of the second heart sound was noted. There were no murmurs, rubs, clicks, or gallops. Abdomen: Abdominal exam revealed normal bowel sounds. The abdomen was soft, non- tender, and without masses, organomegaly, or appreciable enlargement of the abdominal aorta. Extremities: [No clubbing, 1+ bipedal edema, no cyanosis.] Neurological Exam: [No focal neurologic deficit.] Psychiatric: Normal mood affect and normal mental status examination. Lymphatic: No lymphadenopathy was appreciated. Musculoskeletal: Generally weak, no deformities, normal range of motion. - Labs CBC & Chem 7: 04/04/17 06:35 04/03/17 05:50 Labs: Abnormal Lab Results - Last 24 Hours (Table) 04/03/17 04/03/17 04/03/17 Range/Units 14:16 16:44 21:14 WBC (3.8-10.6) k/uL RBC (3.80-5.40) m/uL Hgb (11.4-16.0) gm/dL Hct (34.0-46.0) % Neutrophils # (1.3-7.7) k/uL APTT 59.6 H (22.0-30.0) sec POC Glucose (mg/dL) 110 H 153 H (75-99) mg/dL 04/04/17 04/04/17 04/04/17 Range/Units 06:08 06:35 06:35 WBC 19.3 H (3.8-10.6) k/uL RBC 2.48 L (3.80-5.40) m/uL Hgb 7.6 L (11.4-16.0) gm/dL Hct 24.4 L (34.0-46.0) % Neutrophils # 16.6 H (1.3-7.7) k/uL APTT 75.8 H (22.0-30.0) sec POC Glucose (mg/dL) 118 H (75-99) mg/dL 04/04/17 Range/Units 12:17 WBC (3.8-10.6) k/uL RBC (3.80-5.40) m/uL Hgb (11.4-16.0) gm/dL Hct (34.0-46.0) % Neutrophils # (1.3-7.7) k/uL APTT (22.0-30.0) sec POC Glucose (mg/dL) 117 H (75-99) mg/dL Microbiology - Last 24 Hours (Table) 04/01/17 23:18 Blood Culture - Preliminary Blood No Growth after 48 hours Assessment and Plan Plan: Assessment: 1 Acute on chronic hypoxic respiratory failure secondary to COPD exacerbation, the patient also has severe end-stage COPD, FEV1 is less than 40%. 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 The patient was supposed to undergo radiosurgery through radiation oncology. The patient obviously is not a candidate for any surgical resection due to poor baseline performance and functional status and poor and advanced lung disease. 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 The patient will be restarted back on Declomycin 3 new onset atrial flutter with 2 to 1 block and rapid ventricular response 4 hypertension 5 hyperlipidemia 6 osteopenia 7 cor pulmonale. Plan Continue demeclocycline, fluid restriction. Obtain on the BMP tomorrow morning. The low sodium level is likely paraneoplastic related to lung cancer. Treatment of an acute COPD exacerbation with a combination of bronchodilators and steroids, and oral Levaquin. We will switch IV steroids to oral prednisone today. Anticoagulation and A. flutter rate control per cardiology. If patient remains stable, may be discharged home tomorrow. I performed a history & physical examination of the patient and discussed their management with my nurse practitioner, Sophia Turner. I reviewed the nurse practitioner's note and agree with the documented findings and plan of care. Lung sounds are diminished. The findings and the impression was discussed with the patient. I attest to the documentation by the nurse practitioner. Time with Patient: Less than 30 <Emani Pena - Last Filed: 04/04/17 15:45> Objective - Vital Signs Vital signs: Vital Signs Temp 97.4 F L 04/04/17 12:00 Pulse 96 04/04/17 13:07 Resp 20 04/04/17 12:00 BP 125/54 04/04/17 12:00 Pulse Ox 99 04/04/17 12:00 Intake & Output 04/03/17 04/04/17 04/04/17 18:59 06:59 18:59 Intake Total 699.877 88.75 255.756 Output Total 600 300 Balance 99.877 -211.25 255.756 Weight 50.5 kg 50.5 kg Intake: IV 180 75 .9 @ 10 120 30 Diltiazem 125 mg In 60 15 Sodium Chloride 0.9% 100 ml @ 5 MG/HR 5 mls/hr IV .Q24H [facility] Rx#:[id number] Heparin Sod,Pork in 0.45% 30 NaCl 25,000 unit In 0.45 % NaCl 1 500ml.bag @ 12 UNITS/KG/HR 11.75 mls/hr IV .Q24H [facility] Rx#: [id number] Intake, IV Titration 79.877 88.75 180.756 Amount Diltiazem 125 mg In 88.75 Sodium Chloride 0.9% 100 ml @ 5 MG/HR 5 mls/hr IV .Q24H [facility] Rx#:[id number] Heparin Sod,Pork in 0.45% 79.877 180.756 NaCl 25,000 unit In 0.45 % NaCl 1 500ml.bag @ 12 UNITS/KG/HR 11.75 mls/hr IV .Q24H [facility] Rx#: [id number] Oral 440 Output: Urine 600 300 Other: Voiding Method Bedside Commode Bedside Commode # Voids 1 2 # Bowel Movements 0 1 - Labs CBC & Chem 7: 04/04/17 06:35 04/03/17 05:50 Labs: Abnormal Lab Results - Last 24 Hours (Table) 04/03/17 04/03/17 04/04/17 Range/Units 16:44 21:14 06:08 WBC (3.8-10.6) k/uL RBC (3.80-5.40) m/uL Hgb (11.4-16.0) gm/dL Hct (34.0-46.0) % Neutrophils # (1.3-7.7) k/uL APTT (22.0-30.0) sec POC Glucose (mg/dL) 110 H 153 H 118 H (75-99) mg/dL 04/04/17 04/04/17 04/04/17 Range/Units 06:35 06:35 12:17 WBC 19.3 H (3.8-10.6) k/uL RBC 2.48 L (3.80-5.40) m/uL Hgb 7.6 L (11.4-16.0) gm/dL Hct 24.4 L (34.0-46.0) % Neutrophils # 16.6 H (1.3-7.7) k/uL APTT 75.8 H (22.0-30.0) sec POC Glucose (mg/dL) 117 H (75-99) mg/dL Microbiology - Last 24 Hours (Table) 04/01/17 23:18 Blood Culture - Preliminary Blood No Growth after 48 hours Assessment and Plan Plan: Is a joint evaluation that was done along with the nurse practitioner. I tested above-mentioned information. The patient is currently off Cardizem drip and she is on oral Cardizem. She is on no anticoagulants and IV heparin was discontinued. A follow-up sodium level to be obtained for tomorrow. The patient is on oral demeclocycline. The plan is to discharge this patient to rehabilitation and following that she will need radiation therapy to her chest regarding a highly suspicious lung mass which is most likely an underlying lung cancer. We'll continue to follow.
[2017-04-04 16:42] VITALS: BMI 23.2
[2017-04-04 17:10] LABS: Glucose,Whole Blood 156 mg/dL (75-99)
--- NOTE | 2017-04-04 18:23 | P.PN ---
Subjective Progress Note Date: 04/04/17 Progress note being dictated for Dr. Eduardo. Interval history: Patient is a 81-year-old female with known history of COPD on 4 L home oxygen, right upper lobe mass, hypertension, hyperlipidemia and generalized medical debility came to ER as a increased shortness of breath and cough as well as generalized weakness. Apparently patient had fall 2 at home. Otherwise patient denied any nausea vomiting or abdominal pain no diarrhea. Patient was recently admitted to the hospital with acute COPD exacerbation and hyponatremia.. Patient had CT chest at the time showed right upper lobe mass. 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 Patient presented back to the hospital after 3 days at home. Denied any hematemesis or melena. Patient was also found to have atrial flutter and was started on Cardizem drip and heparin IV. Otherwise patient is having generalized weakness and shortness of breath with minimal exertion. Patient was supposed to follow with radiation oncology. Patient is not a surgical candidate due to advanced COPD and generalized medical debility and poor functional status. Sodium level 118 on admission Patient does have leukocytosis Chest x-ray showed COPD and right upper lobe mass. No changes compared to previous study. Review of Systems Constitutional: Patient denies any fever or chills . Does have generalized weakness or weight loss and fatigue. Abdomen: Patient denied nausea vomiting and diarrhea and abdominal pain. Cardiovascular: Patient denies any chest pain or short of breath no palpitations. Respiratory: Cough with minimal sputum production and shortness of breath. \ Neurologic: Patient denied any numbness or tingling headache. Musculoskeletal: Patient denies any complaints of joint swelling or deformity. Skin: Negative Psychiatric: Negative Endocrine: No heat or cold intolerance. No recent weight gain. Genitourinary: No dysuria or hematuria. All other 14 point ROS negative except the above Patient is a poor historian due to underlying clinical condition. 04/03/17 sodium improving, up to 128. Leukocytosis improving, WBC down to 18.9 preliminary blood cultures negative, afebrile. Maintained on Cardizem and heparin drips, telemetry atrial flutter, heart rates low 100s. 04/04/17 Continues on nebulized bronchodilators, steroids, Levaquin. breathing continues to improve, maintaining O2 sats of mid 90s on 4 L nasal cannula. Blood cultures negative at 48 hours, Afebrile. cardizem Drip discontinued and placed on oral Cardizem. Hemoglobin 7.6. Heparin drip discontinued. Objective - Vital Signs Vital signs: Vital Signs Temp 98.4 F 04/04/17 16:00 Pulse 85 04/04/17 16:00 Resp 18 04/04/17 16:00 BP 113/53 04/04/17 16:00 Pulse Ox 95 04/04/17 16:00 Intake & Output 04/03/17 04/04/17 04/04/17 18:59 06:59 18:59 Intake Total 699.877 88.75 255.756 Output Total 600 300 Balance 99.877 -211.25 255.756 Weight 50.5 kg 50.5 kg Intake: IV 180 75 .9 @ 10 120 30 Diltiazem 125 mg In 60 15 Sodium Chloride 0.9% 100 ml @ 5 MG/HR 5 mls/hr IV .Q24H [facility] Rx#:[id number] Heparin Sod,Pork in 0.45% 30 NaCl 25,000 unit In 0.45 % NaCl 1 500ml.bag @ 12 UNITS/KG/HR 11.75 mls/hr IV .Q24H [facility] Rx#: [id number] Intake, IV Titration 79.877 88.75 180.756 Amount Diltiazem 125 mg In 88.75 Sodium Chloride 0.9% 100 ml @ 5 MG/HR 5 mls/hr IV .Q24H [facility] Rx#:[id number] Heparin Sod,Pork in 0.45% 79.877 180.756 NaCl 25,000 unit In 0.45 % NaCl 1 500ml.bag @ 12 UNITS/KG/HR 11.75 mls/hr IV .Q24H [facility] Rx#: [id number] Oral 440 Output: Urine 600 300 Other: Voiding Method Bedside Commode Bedside Commode # Voids 1 2 # Bowel Movements 0 1 - Exam Patient is lying in the bed comfortably, mild distress, awake alert and oriented. Patient does have generalized wasting and cachexia. HEENT: Normocephalic. Neck is supple. Pupils reactive. Nostrils clear. Oral cavity is moist. Ears reveal no drainage. Neck reveals no JVD, carotid bruits, or thyromegaly. CHEST EXAMINATION: Trachea is central. Symmetrical expansion. Bilateral diminished air entry. Fine Basilar crackles, more so on the right, No rhonchi or wheezing. CARDIAC: Normal S1, S2 with no gallops. No murmurs ABDOMEN: Soft. Bowel sounds normal. No organomegaly. No abdominal bruits. Extremities: positive edema. No clubbing or cyanosis Neurologically awake, alert, oriented x3 with well-coordinated movements. No focal deficits noted Skin: No rash or skin lesions. Psychiatric: Operative. Nonsuicidal Musculoskeletal: No joint swelling or deformity. Normal range of motion. - Labs CBC & Chem 7: 04/04/17 06:35 04/03/17 05:50 Labs: Abnormal Lab Results - Last 24 Hours (Table) 04/03/17 04/04/17 04/04/17 Range/Units 21:14 06:08 06:35 WBC 19.3 H (3.8-10.6) k/uL RBC 2.48 L (3.80-5.40) m/uL Hgb 7.6 L (11.4-16.0) gm/dL Hct 24.4 L (34.0-46.0) % Neutrophils # 16.6 H (1.3-7.7) k/uL APTT (22.0-30.0) sec POC Glucose (mg/dL) 153 H 118 H (75-99) mg/dL 04/04/17 04/04/17 04/04/17 Range/Units 06:35 12:17 16:39 WBC (3.8-10.6) k/uL RBC (3.80-5.40) m/uL Hgb (11.4-16.0) gm/dL Hct (34.0-46.0) % Neutrophils # (1.3-7.7) k/uL APTT 75.8 H (22.0-30.0) sec POC Glucose (mg/dL) 117 H 156 H (75-99) mg/dL Microbiology - Last 24 Hours (Table) 04/01/17 23:18 Blood Culture - Preliminary Blood No Growth after 48 hours Assessment and Plan Assessment: Acute on chronic hypoxic respiratory failure secondary to COPD exacerbation Recently diagnosed right upper lobe cavitating mass likely primary lung cancer Hyponatremia likely secondary to SIADH with possible bronchogenic carcinoma New onset atrial flutter with 2-1 went up a response Hypertension Hyperlipidemia Osteopenia Generalized medical debility and poor functional status Plan: Continue on current medication regime , Cardizem, nebulized bronchodilators, oral steroids,demeclocycline, Levaquin,monitoring and symptomatic treatment.maintain fluid restriction. Follow closely with multiple consults. Prognosis guarded given multiple complex medical issues. Discharge planning in progress For tomorrow. The impression and plan of care has been dictated as directed. : I performed a history and examination of this patient, discussed the same with the dictator. I agree with the dictator's note ,documented as a scribe. Any additional findings or plans will be noted.
[2017-04-04] MEDS: ATORVASTATIN 10 MG TAB PO SCH (20:00)
[2017-04-04 21:09] LABS: Glucose,Whole Blood 214 mg/dL (75-99)
[2017-04-05 05:55] LABS: Glucose,Whole Blood 96 mg/dL (75-99)
[2017-04-05 06:35] LABS: Basophils # (A) 0.2 k/uL (0-0.2); Basophils % (A) 1 %; Eosinophils % (A) 0 %; HCT 26.2 % (34.0-46.0); Lymphocytes % (A) 11 %; MCH 30.8 pg (25.0-35.0); MCHC 30.8 g/dL (31.0-37.0); MCV 100.1 fL (80.0-100.0); Macrocytosis Slight; Mean Platelet Volume 7.8; Monocytes # (A) 0.8 k/uL (0-1.0); Monocytes % (A) 4 %; Neutrophils # (A) 14.5 k/uL (1.3-7.7); Neutrophils % (A) 82 %; Platelet Count 159 k/uL (150-450); RBC 2.61 m/uL (3.80-5.40); RDW 14.5 % (11.5-15.5); WBC 17.7 k/uL (3.8-10.6)
[2017-04-05] MEDS: INSULIN ASPART 100 UNIT/ML 1 ML 10 ML VIAL SQ SCH ×2 (06:37→12:56)
[2017-04-05 07:13] LABS: Anion Gap 7 mmol/L; Blood Urea Nitrogen 18 mg/dL (7-17); Calcium 8.6 mg/dL (8.4-10.2); Glucose 80 mg/dL (74-99); Potassium 3.8 mmol/L (3.5-5.1); Sodium 124 mmol/L (137-145)
[2017-04-05] MEDS: IPRATROPIUM-ALBUTEROL 3 ML NEB INHALATION SCH ×3 (07:35→16:12)
[2017-04-05 07:54] LABS: Chloride 76 mmol/L (98-107)
[2017-04-05 07:56] LABS: Carbon Dioxide 46 mmol/L (22-30)
[2017-04-05] MEDS: CALCIUM CARBONATE 500 MG CHEWABLE PO SCH (09:02)
[2017-04-05] MEDS: DEMECLOCYCLINE 150 MG TAB PO SCH (09:02)
[2017-04-05] MEDS: DILTIAZEM ORAL 30 MG TAB PO SCH ×2 (09:02→16:14)
[2017-04-05] MEDS: predniSONE 20 MG TAB PO SCH (09:03)
[2017-04-05] MEDS: MULTIVITAMINS, THERA 1 EACH TAB PO SCH (09:03)
[2017-04-05] MEDS: FUROSEMIDE 20 MG TAB PO SCH (09:03)
[2017-04-05] MEDS: LISINOPRIL 20 MG TAB PO SCH (09:03)
[2017-04-05] MEDS: LEVOFLOXACIN 750 MG TAB PO SCH (09:03)
[2017-04-05] MEDS ORDERED: HYDROmorphone 2 MG/ML 1 ML SYRINGE IVP PRN (09:07)
[2017-04-05 11:34] VITALS: TEMP 97.5
[2017-04-05 11:56] LABS: Glucose,Whole Blood 102 mg/dL (75-99)
--- NOTE | 2017-04-05 14:21 | P.DS ---
Providers Date of admission: 04/02/17 02:06 Expected date of discharge: 04/05/17 Attending physician: Eran Thompson Consults: 04/02/17 02:07 Consult Physician Urgent Consulting Provider: Toni Tee Consult Reason/Comments: COPD with respiratory failure Do you want consulting provider notified?: Yes, Notify in am 04/03/17 14:20 Consult Physician Urgent Consulting Provider: Richard Zhang Consult Reason/Comments: A-flutter, Cardizem gtt, heparin gtt, Do you want consulting provider notified?: Yes Primary care physician: Eran Thompson [facility] Course: Final Diagnoses: Acute on chronic hypoxic respiratory failure secondary to COPD exacerbation Recently diagnosed right upper lobe cavitating mass likely primary lung cancer Hyponatremia likely secondary to SIADH with possible bronchogenic carcinoma New onset atrial flutter with 2-1 went up a response Hypertension Hyperlipidemia Osteopenia Generalized medical debility and poor functional status Hospital course:Interval history: Patient is a 81-year-old female with known history of COPD on 4 L home oxygen, right upper lobe mass, hypertension, hyperlipidemia and generalized medical debility came to ER as a increased shortness of breath and cough as well as generalized weakness. Apparently patient had fall 2 at home. Otherwise patient denied any nausea vomiting or abdominal pain no diarrhea. Patient was recently admitted to the hospital with acute COPD exacerbation and hyponatremia.. Patient had CT chest at the time showed right upper lobe mass. 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 Patient presented back to the hospital after 3 days at home. Denied any hematemesis or melena. Patient was also found to have atrial flutter and was started on Cardizem drip and heparin IV. Otherwise patient is having generalized weakness and shortness of breath with minimal exertion. Patient was supposed to follow with radiation oncology. Patient is not a surgical candidate due to advanced COPD and generalized medical debility and poor functional status. Sodium level 118 on admission Patient does have leukocytosis Chest x-ray showed COPD and right upper lobe mass. No changes compared to previous study. Scheduled for outpatient PET scan. Evaluated by pulmonary, cardiology.Maintained on nebulized dilators, steroids, empiric antibiotics, status post Cardizem drip. Significant clinical improvement. Patient has been cleared by all consults for discharge. Patient is being discharged to [facility] [place] [facility] in a stable condition with guarded prognosis. Physical EXAM: VSS, CARDIAC: Normal S1, S2 with no gallops. No murmurs,CHEST EXAMINATION: Bilateral diminished air entry. Fine Basilar crackles, more so on the right, No rhonchi or wheezing. ABDOMEN: Soft. Bowel sounds normal. The impression and plan of care has been dictated as directed. : I performed a history and examination of this patient, discussed the same with the dictator. I agree with the dictator's note ,documented as a scribe. Any additional findings or plans will be noted. Time spent: Greater than 35 minutes Patient Condition at Discharge: Stable Plan - Discharge Summary New Discharge Prescriptions: New Diltiazem Oral [Cardizem*] 30 mg PO TID tab INSULIN LISPRO (HumaLOG) [humaLOG] 0 unit SQ ACHS #1 vial Ipratropium-Albuterol Nebulize [Duoneb 0.5 mg-3 mg/3 ml Soln] 3 ml INHALATION RT-QID ampul.neb Ipratropium-Albuterol Nebulize [Duoneb 0.5 mg-3 mg/3 ml Soln] 3 ml INHALATION Q4H PRN ampul.neb PRN Reason: Shortness Of Breath Or Wheezing predniSONE 10 mg PO DIRECTED #30 tab Continue Calcium Carbonate [Calcium] 600 mg PO QAM [place]-3 Fatty Acids/Fish Oil [Fish Oil 1,000 mg Softgel] 1 cap PO QAM Multivitamins, Thera [Multivitamin (formulary)] 1 tab PO DAILY Umeclidinium [place] [Incruse Ellipta] 1 puff INHALATION RT-DAILY Simvastatin [Zocor] 20 mg PO HS Furosemide [Lasix] 20 mg PO QAM Lisinopril [Zestril] 20 mg PO DAILY Budesonide [Pulmicort Flexhaler] 2 puff INHALATION RT-BID Demeclocycline [Declomycin] 300 mg PO BID #60 tab Discontinued Levofloxacin [Levaquin] 750 mg PO DAILY #10 tab predniSONE See Taper PO DAILY #30 tab Albuterol Inhaler [Ventolin Hfa Inhaler] 1 - 2 puff INHALATION RT-Q4H PRN PRN Reason: Shortness Of Breath Discharge Medication List Budesonide [Pulmicort Flexhaler] 2 puff INHALATION RT-BID 03/23/17 [History] Calcium Carbonate [Calcium] 600 mg PO QAM 03/23/17 [History] Furosemide [Lasix] 20 mg PO QAM 03/23/17 [History] Lisinopril [Zestril] 20 mg PO DAILY 03/23/17 [History] Multivitamins, Thera [Multivitamin (formulary)] 1 tab PO DAILY 03/23/17 [History ] [place]-3 Fatty Acids/Fish Oil [Fish Oil 1,000 mg Softgel] 1 cap PO QAM 03/23/17 [ History] Simvastatin [Zocor] 20 mg PO HS 03/23/17 [History] Umeclidinium [place] [Incruse Ellipta] 1 puff INHALATION RT-DAILY 03/23/17 [ History] Demeclocycline [Declomycin] 300 mg PO BID #60 tab 03/28/17 [Rx] Diltiazem Oral [Cardizem*] 30 mg PO TID tab 04/05/17 [Rx] INSULIN LISPRO (HumaLOG) [humaLOG] 0 unit SQ ACHS #1 vial 04/05/17 [Rx] Ipratropium-Albuterol Nebulize [Duoneb 0.5 mg-3 mg/3 ml Soln] 3 ml INHALATION Q4H PRN ampul.neb 04/05/17 [Rx] Ipratropium-Albuterol Nebulize [Duoneb 0.5 mg-3 mg/3 ml Soln] 3 ml INHALATION RT -QID ampul.neb 04/05/17 [Rx] predniSONE 10 mg PO DIRECTED #30 tab 04/05/17 [Rx] Follow up Appointment(s)/Referral(s): Eran Thompson DO [Primary Care Provider] - 1 Week (After DC from [facility]) Emani Pena MD [STAFF PHYSICIAN] - 2 Weeks Corina Kumar MD [STAFF PHYSICIAN] - 3 Days (While at [facility]) Activity/Diet/Wound Care/Special Instructions: No Antibx.as per pulmonary. Patient has a PET scan April. confirm cardiology appointment prior to discharge 1030 Arrival 1100 scan DIet: cardiac Activity: limited TIll F/U cbc,bmp in 3 days
--- NOTE | 2017-04-05 15:39 | P.PN ---
Subjective Progress Note Date: 04/05/17 This is a pleasant 81-year-old female with history of hypertension, hyperlipidemia, advanced COPD, recent diagnosis of a right lower lobe mass highly suggestive of lung cancer, who was recently in the hospital with an exacerbation of COPD as well as hyponatremia. She represented to the hospital getting with symptoms of shortness of breath. She denies any chest discomfort, no palpitations. An EKG was performed on admission here which was read as atrial flutter, for this reason a cardiology consultation was requested. Upon review of the EKG as well as subsequent EKGs and rhythm strips, it appears the patient was in a multifocal atrial tachycardia. Chest x-ray on admission showed COPD with a right pulmonary mass, no significant change as compared with prior exam. No heart failure. Blood Pressure 108/50, heart rate in the 90s, temperature 97.5, 98% on 4 L of oxygen. White blood cell count 19.3, hemoglobin 7.6, sodium 128, potassium 4.0, chloride 86, CO2 38, BUN 18, and creatinine 0.4. Sodium on this most recent admission 118. The time of my examination this morning, patient is sitting up at her bedside, she states that her breathing has significantly improved already. 04/05/2017 Patient seen and examined, breathing stable. No further episodes of multifocal atrial tachycardia noted. Continue current dose of calcium channel dante. Objective - Vital Signs Vital signs: Vital Signs Temp 97.5 F L 04/05/17 08:55 Pulse 96 04/05/17 11:52 Resp 19 04/05/17 08:55 BP 135/69 04/05/17 08:55 Pulse Ox 93 L 04/05/17 13:21 Intake & Output 04/04/17 04/05/17 04/05/17 18:59 06:59 18:59 Intake Total 845.756 200 450 Output Total 0619 777 7424 Balance -254.244 -300 -550 Weight 50.5 kg Intake: IV 75 .9 @ 10 30 Diltiazem 125 mg In 15 Sodium Chloride 0.9% 100 ml @ 5 MG/HR 5 mls/hr IV .Q24H [facility] Rx#:[id number] Heparin Sod,Pork in 0.45% 30 NaCl 25,000 unit In 0.45 % NaCl 1 500ml.bag @ 12 UNITS/KG/HR 11.75 mls/hr IV .Q24H [facility] Rx#: [id number] Intake, IV Titration 180.756 Amount Heparin Sod,Pork in 0.45% 180.756 NaCl 25,000 unit In 0.45 % NaCl 1 500ml.bag @ 12 UNITS/KG/HR 11.75 mls/hr IV .Q24H [facility] Rx#: [id number] Oral 590 200 450 Output: Urine 7031 203 5517 Other: Voiding Method Bedside Commode Bedside Commode # Voids 1 3 - Exam PHYSICAL EXAMINATION: HEENT: Head is atraumatic, normocephalic. Pupils equal, round. Neck is supple. There is no elevated jugular venous pressure. HEART EXAMINATION: Heart S1, S2 normal. No murmur or gallop heard. CHEST EXAMINATION: Lungs reveal decreased air exchange throughout with fine crackles to the bases. ABDOMEN: Soft, nontender. Bowel sounds are heard. No organomegaly noted. EXTREMITIES: 2+ peripheral pulses with no evidence of peripheral edema and no calf tenderness noted. NEUROLOGIC patient is awake, alert and oriented -3. - Labs CBC & Chem 7: 04/05/17 05:58 04/05/17 05:58 Labs: Abnormal Lab Results - Last 24 Hours (Table) 04/04/17 04/04/17 04/05/17 Range/Units 16:39 21:07 05:58 WBC 17.7 H (3.8-10.6) k/uL RBC 2.61 L (3.80-5.40) m/uL Hgb 8.0 L (11.4-16.0) gm/dL Hct 26.2 L (34.0-46.0) % MCV 100.1 H (80.0-100.0) fL MCHC 30.8 L (31.0-37.0) g/dL Neutrophils # 14.5 H (1.3-7.7) k/uL Sodium (137-145) mmol/L Chloride (98-107) mmol/L Carbon Dioxide (22-30) mmol/L BUN (7-17) mg/dL Creatinine (0.52-1.04) mg/dL POC Glucose (mg/dL) 156 H 214 H (75-99) mg/dL 04/05/17 04/05/17 Range/Units 05:58 11:53 WBC (3.8-10.6) k/uL RBC (3.80-5.40) m/uL Hgb (11.4-16.0) gm/dL Hct (34.0-46.0) % MCV (80.0-100.0) fL MCHC (31.0-37.0) g/dL Neutrophils # (1.3-7.7) k/uL Sodium 124 L (137-145) mmol/L Chloride 76 L* (98-107) mmol/L Carbon Dioxide 46 H* (22-30) mmol/L BUN 18 H (7-17) mg/dL Creatinine 0.50 L (0.52-1.04) mg/dL POC Glucose (mg/dL) 102 H (75-99) mg/dL Microbiology - Last 24 Hours (Table) 04/01/17 23:18 Blood Culture - Preliminary Blood No Growth after 72 hours Assessment and Plan Plan: Assessment and plan #1 acute exacerbation of COPD in a patient with severe end-stage COPD #2 right upper lobe mass, likely a neoplasm of the lung primary, patient is scheduled to undergo radiation therapy #3 recurrent hyponatremia #4 anemia # 5 hypertension #6 hyperlipidemia #7 multifocal atrial tachycardia Plan Cardiology's perspective, we will recommend to continue the patient on her current medications. Once we have reviewed the echocardiogram with Doppler study, if normal, We will follow her along with you now on an as-needed basis only, please don't hesitate to call with any questions. DNP note has been reviewed, I agree with a documented findings and plan of care. Patient was seen and examined.
--- NOTE | 2017-04-05 16:31 | P.PN ---
<Sophia Turner M - Last Filed: 04/05/17 16:25> Subjective Progress Note Date: 04/05/17 Principal diagnosis: Acute on chronic hypoxic arrest secondary to COPD exacerbation, patient has severe end-stage COPD, FEV1 of less than 40%. A very pleasant 81-year-old here patient with known history of advanced COPD, chronic hypoxic respiratory failure and the recent diagnosis of a right lower lobe mass which is highly suggestive of lung cancer. 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 The patient was given demeclocycline and the patient was discharged home. After being discharged home for around 3 days the patient became steadily more short of breath and she presented back to the emergency department. She denies having any fever or chills. She denied having any chest pain. She had increased exertional dyspnea and even dyspnea at rest and she had also increased cough which was essentially nonproductive. She is on oxygen at 4 L of oxygen by nasal cannula at home. No change in mental status. No pleurisy. No hemoptysis. No vomiting. No diarrhea. On admission, the sodium level was again low at 118. She has been maintained on a combination of Incruse and Pulmicort Flexhaler in addition to Ventolin rescue inhaler on an albuterol and Atrovent about treatments around the clock. Note that the CAT scan of the chest that she had on 03/20/2017 showed a 6 cm mass in the right lung, in the right upper lobe which is somewhat cavitating. This was felt to be a representation of a neoplasm. During her earlier hospitalization, she was seen by radiation oncology, Dr. Jewel Silva, and she was supposed to start external beam radiation therapy to the right lung mass/review surgery. She is obviously not a candidate for any form of surgical interventions knowing that her COPD is advanced and her overall performance and functional status is poor. Based on her most recent pulmonary function tests from 2011, she has an FEV1 of 0.71 L which is 41% of predicted. A follow-up spirometry has not been done since. On 04/03/2017 patient is seen in follow-up. Lung sounds are diminished, no rhonchi, no wheezes auscultated. He is afebrile, vital signs are stable, denies worsening dyspnea. Blood Culture shows no growth at the 24-hour bernardo. Sodium has improved, and is up to 128 today, urine is 18, creatinine 0.49. WBC is trending down and is down to 18.9 today, hemoglobin is 68, patient is not having any signs of bleeding. Remains in 2:1 flutter, with a rate in the low 100s, continues on Cardizem drip at 5 mg per hour, and heparin drip at 11 units per kilo per hour. On 04/04/2017 patient seen in follow-up. Doing well, lung sounds are positive for a few rhonchi, diminished overall. She denies any worsening dyspnea, no wheezes, or rales auscultated. She is on 4-5 L per nasal cannula, with O2 sat at 96%. Remains afebrile, hemodynamically stable. Blood culture is negative for growth after 48 hours. Today's labs were reviewed reviewed, WBC is stable at 19.3, hemoglobin is 7.6, patient remains on heparin drip, no BMP was done today. Patient denies any specific complaints, remains stable from pulmonary standpoint. IV Cardizem was switched to oral Cardizem at 30 mg by mouth 3 times a day per cardiology. Patient remains on Declomycin, continues on Levaquin, DuoNeb nebulized treatments, she was switched to oral prednisone today. On 04/05/2017 patient seen in Follow-up. Remains stable from pulmonary standpoint, lung sounds are diminished overall, no rhonchi, no wheezes auscultated. No worsening cough, or dyspnea. Patient remains afebrile, hemodynamically stable. Remains on 5 L per nasal cannula with O2 sat at 93%. Blood cultures show no growth after 72 hours. Today's lab work was noted, shows improvement in the degree of leukocytosis, hemoglobin stable at 8.0, serum sodium is slightly decreased, currently is 04/01/2023, chloride is 76, carbon dioxide is 46, B1 is 18, and creatinine 0.50. Patient remains on Declomycin, she has received a few doses of Levaquin. Objective - Vital Signs Vital signs: Vital Signs Temp 97.5 F L 04/05/17 08:55 Pulse 92 04/05/17 16:12 Resp 19 04/05/17 08:55 BP 135/69 04/05/17 08:55 Pulse Ox 93 L 04/05/17 13:21 Intake & Output 04/04/17 04/05/17 04/05/17 18:59 06:59 18:59 Intake Total 845.756 200 450 Output Total 7567 813 9503 Balance -254.244 -300 -550 Weight 50.5 kg Intake: IV 75 .9 @ 10 30 Diltiazem 125 mg In 15 Sodium Chloride 0.9% 100 ml @ 5 MG/HR 5 mls/hr IV .Q24H [facility] Rx#:[id number] Heparin Sod,Pork in 0.45% 30 NaCl 25,000 unit In 0.45 % NaCl 1 500ml.bag @ 12 UNITS/KG/HR 11.75 mls/hr IV .Q24H [facility] Rx#: [id number] Intake, IV Titration 180.756 Amount Heparin Sod,Pork in 0.45% 180.756 NaCl 25,000 unit In 0.45 % NaCl 1 500ml.bag @ 12 UNITS/KG/HR 11.75 mls/hr IV .Q24H [facility] Rx#: [id number] Oral 590 200 450 Output: Urine 4157 394 3560 Other: Voiding Method Bedside Commode Bedside Commode # Voids 1 3 - Exam Physical Exam: Revealed an 81-year-old female, frail looking, chronically ill- looking, noted to have dyspnea at rest and with any activity. HEENT:Neck was supple and without jugular venous distension, thyromegaly, or carotid bruits. Carotids were easily palpable bilaterally. There was no adenopathy. Chest: [Diminished breath sound bilaterally, no crackles, no rhonchi, no wheezes. Symmetrical chest expansion was noted. No chest wall tenderness Cardiac Exam: Cardiac exam revealed the PMI to be normally situated and sized. The rhythm was regular and no extrasystoles were noted during several minutes of auscultation. The first and second heart sounds were normal and physiologic splitting of the second heart sound was noted. There were no murmurs, rubs, clicks, or gallops. Abdomen: Abdominal exam revealed normal bowel sounds. The abdomen was soft, non- tender, and without masses, organomegaly, or appreciable enlargement of the abdominal aorta. Extremities: [No clubbing, 1+ bipedal edema, no cyanosis.] Neurological Exam: [No focal neurologic deficit.] Psychiatric: Normal mood affect and normal mental status examination. Lymphatic: No lymphadenopathy was appreciated. Musculoskeletal: Generally weak, no deformities, normal range of motion. - Labs CBC & Chem 7: 04/05/17 05:58 04/05/17 05:58 Labs: Abnormal Lab Results - Last 24 Hours (Table) 04/04/17 04/04/17 04/05/17 Range/Units 16:39 21:07 05:58 WBC 17.7 H (3.8-10.6) k/uL RBC 2.61 L (3.80-5.40) m/uL Hgb 8.0 L (11.4-16.0) gm/dL Hct 26.2 L (34.0-46.0) % MCV 100.1 H (80.0-100.0) fL MCHC 30.8 L (31.0-37.0) g/dL Neutrophils # 14.5 H (1.3-7.7) k/uL Sodium (137-145) mmol/L Chloride (98-107) mmol/L Carbon Dioxide (22-30) mmol/L BUN (7-17) mg/dL Creatinine (0.52-1.04) mg/dL POC Glucose (mg/dL) 156 H 214 H (75-99) mg/dL 04/05/17 04/05/17 Range/Units 05:58 11:53 WBC (3.8-10.6) k/uL RBC (3.80-5.40) m/uL Hgb (11.4-16.0) gm/dL Hct (34.0-46.0) % MCV (80.0-100.0) fL MCHC (31.0-37.0) g/dL Neutrophils # (1.3-7.7) k/uL Sodium 124 L (137-145) mmol/L Chloride 76 L* (98-107) mmol/L Carbon Dioxide 46 H* (22-30) mmol/L BUN 18 H (7-17) mg/dL Creatinine 0.50 L (0.52-1.04) mg/dL POC Glucose (mg/dL) 102 H (75-99) mg/dL Microbiology - Last 24 Hours (Table) 04/01/17 23:18 Blood Culture - Preliminary Blood No Growth after 72 hours Assessment and Plan Plan: Assessment: 1 Acute on chronic hypoxic respiratory failure secondary to COPD exacerbation, the patient also has severe end-stage COPD, FEV1 is less than 40%. 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 The patient was supposed to undergo radiosurgery through radiation oncology. The patient obviously is not a candidate for any surgical resection due to poor baseline performance and functional status and poor and advanced lung disease. 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 Patient continues on Declomycin. 3 new onset atrial flutter with 2 to 1 block and rapid ventricular response 4 hypertension 5 hyperlipidemia 6 osteopenia 7 cor pulmonale. Plan Patient remains stable from pulmonary standpoint, was no evidence of pulmonary infiltrate or any acute pulmonary process. Patient received 3 days worth of Levaquin, lung sounds are generally diminished, no rhonchi, no wheezes. She is stable for discharge to rehab facility today, antibiotics can been discontinued , microbiology has been negative, there is no evidence of chest congestion, she has been afebrile. I performed a history & physical examination of the patient and discussed their management with my nurse practitioner, Sophia Turner. I reviewed the nurse practitioner's note and agree with the documented findings and plan of care. Lung sounds are diminished. The findings and the impression was discussed with the patient. I attest to the documentation by the nurse practitioner. Time with Patient: Less than 30 <Emani Pena - Last Filed: 04/05/17 16:59> Objective - Vital Signs Vital signs: Vital Signs Temp 97.5 F L 04/05/17 08:55 Pulse 96 04/05/17 16:33 Resp 19 04/05/17 08:55 BP 135/69 04/05/17 08:55 Pulse Ox 93 L 04/05/17 13:21 Intake & Output 04/04/17 04/05/17 04/05/17 18:59 06:59 18:59 Intake Total 845.756 200 450 Output Total 4068 179 1222 Balance -254.244 -300 -550 Weight 50.5 kg Intake: IV 75 .9 @ 10 30 Diltiazem 125 mg In 15 Sodium Chloride 0.9% 100 ml @ 5 MG/HR 5 mls/hr IV .Q24H [facility] Rx#:[id number] Heparin Sod,Pork in 0.45% 30 NaCl 25,000 unit In 0.45 % NaCl 1 500ml.bag @ 12 UNITS/KG/HR 11.75 mls/hr IV .Q24H [facility] Rx#: [id number] Intake, IV Titration 180.756 Amount Heparin Sod,Pork in 0.45% 180.756 NaCl 25,000 unit In 0.45 % NaCl 1 500ml.bag @ 12 UNITS/KG/HR 11.75 mls/hr IV .Q24H [facility] Rx#: [id number] Oral 590 200 450 Output: Urine 5226 182 1413 Other: Voiding Method Bedside Commode Bedside Commode # Voids 1 3 - Labs CBC & Chem 7: 04/05/17 05:58 04/05/17 05:58 Labs: Abnormal Lab Results - Last 24 Hours (Table) 04/04/17 04/04/17 04/05/17 Range/Units 16:39 21:07 05:58 WBC 17.7 H (3.8-10.6) k/uL RBC 2.61 L (3.80-5.40) m/uL Hgb 8.0 L (11.4-16.0) gm/dL Hct 26.2 L (34.0-46.0) % MCV 100.1 H (80.0-100.0) fL MCHC 30.8 L (31.0-37.0) g/dL Neutrophils # 14.5 H (1.3-7.7) k/uL Sodium (137-145) mmol/L Chloride (98-107) mmol/L Carbon Dioxide (22-30) mmol/L BUN (7-17) mg/dL Creatinine (0.52-1.04) mg/dL POC Glucose (mg/dL) 156 H 214 H (75-99) mg/dL 04/05/17 04/05/17 Range/Units 05:58 11:53 WBC (3.8-10.6) k/uL RBC (3.80-5.40) m/uL Hgb (11.4-16.0) gm/dL Hct (34.0-46.0) % MCV (80.0-100.0) fL MCHC (31.0-37.0) g/dL Neutrophils # (1.3-7.7) k/uL Sodium 124 L (137-145) mmol/L Chloride 76 L* (98-107) mmol/L Carbon Dioxide 46 H* (22-30) mmol/L BUN 18 H (7-17) mg/dL Creatinine 0.50 L (0.52-1.04) mg/dL POC Glucose (mg/dL) 102 H (75-99) mg/dL Microbiology - Last 24 Hours (Table) 04/01/17 23:18 Blood Culture - Preliminary Blood No Growth after 72 hours Assessment and Plan Plan: This is a joint evaluation that was done along with the nurse practitioner. Patient's sodium level today's is at 124. The patient will continue the demeclocycline. Continue prednisone burst taper. Continue bronchodilators. The patient will likely get discharged to [facility] to be followed up on outpatient basis. Prognosis poor based on advanced COPD and a large cavitating lung mass which is most likely a cancerous lesion. The patient is aware of these findings. I attest above-mentioned information.
--- NOTE | 2017-04-05 17:14 | ECHOF ---
Referral Reason:atrial flutter with RVR MEASUREMENTS -------- HEIGHT: 129.5 cm WEIGHT: 50.3 kg BP: 119/56 IVSd: 1.2 cm (0.6 - 1.1) LVIDd: 3.0 cm (3.9 - 5.3) LVPWd: 1.4 cm (0.6 - 1.1) EDV(Teich): 35 ml IVSs: 1.8 cm LVIDs: 1.2 cm LVPWs: 1.5 cm %IVS Thck: 47 % ESV(Teich): 4 ml EF(Teich): 90 % %FS: 59 % SV(Teich): 31 ml Ao Diam: 3.2 cm (2.0 - 3.7) AV Cusp: 1.4 cm (1.5 - 2.6) LA Diam: 2.6 cm (2.7 - 3.8) MV EXCURSION: 10.022 mm (> 18.000) MV EF SLOPE: 55 mm/s (70 - 150) EPSS: 0.5 cm MV E Heri: 0.94 m/s MV DecT: 162 ms MV Dec Jones: 5.8 m/s MV A Heri: 1.27 m/s MV E/A Ratio: 0.74 MV PHT: 47 ms E/E': 18.81 E': 0.05 m/s MR Vmax: 3.20 m/s MR maxP.91 mmHg AV Vmax: 1.63 m/s AV maxP.59 mmHg AR Vmax: 3.30 m/s AR maxP.66 mmHg AR PHT: 327 ms AR Dec Time: 1126 ms AR Dec Jones: 2.9 m/s TR Vmax: 3.50 m/s TR maxP.05 mmHg RAP: 5.00 mmHg RVSP: 54.05 mmHg FINDINGS -------- Sinus rhythm. Pt has severe COPD. Images taken from [place]co[place]. The left ventricular size is normal. There is mild concentric left ventricular hypertrophy. Overa ll left ventricular systolic function is normal with, an EF between 55 - 60 %. The right ventricle is normal in size and function. The left atrium is normal in size. The right atrium is normal in size. Aortic valve is trileaflet and is mildly thickened. There is mild aortic regurgitation. The mitral valve leaflets are mildly thickened. Mild mitral regurgitation is present. Mild tricuspid regurgitation present. The right ventricular systolic pressure, as measured by Doppl er, is 54.05mmHg. Trace/mild (physiologic) pulmonic regurgitation. The aortic root size is normal. There is a trivial pericardial effusion present. CONCLUSIONS -------- 1. Sinus rhythm. 2. Pt has severe COPD. Images taken from subcoastals. 3. The left ventricular size is normal. 4. There is mild concentric left ventricular hypertrophy. 5. Overall left ventricular systolic function is normal with, an EF between 55 - 60 %. 6. The right ventricle is normal in size and function. 7. The left atrium is normal in size. 8. The right atrium is normal in size. 9. Aortic valve is trileaflet and is mildly thickened. 10. There is mild aortic regurgitation. 11. The mitral valve leaflets are mildly thickened. 12. Mild mitral regurgitation is present. 13. Mild tricuspid regurgitation present. 14. The right ventricular systolic pressure, as measured by Doppler, is 54.05mmHg. 15. Trace/mild (physiologic) pulmonic regurgitation. 16. The aortic root size is normal. 17. There is a trivial pericardial effusion present. ELECTRIC ARC WELDER: Salome Joseph RDCS
[2017-04-05 17:38] VITALS: PULSE 104
[2017-04-05 17:41] VITALS: BP 139/53; RESP 16
--- NOTE | 2017-04-06 09:53 | DS ---
DISCHARGE SUMMARY DATE OF SERVICE: 04/05/2017. DISCHARGE SUMMARY ADDENDUM: This 81-year-old woman was admitted with features of COPD exacerbation. The patient also had lung cancer also. The patient will be discharged to [facility] in stable condition with guarded prognosis. Total time taken 35 minutes. Please refer to the discharge summary dictated by nurse practitioner as a scribe for further information of the full history and diagnoses and as well as discharge medications. Medications reconciled was given. Total time taken 35 minutes. SARMAD / JULIANEN: [id number] /
== END 2017-04-05 17:47 | DRG 190 ==
LOC: EC 23:04 → 6SEL 04-02 02:06
PROVIDERS: ADMIT Family Medicine; ATTEND Family Medicine
PROC: 5A09357 Assistance with Respiratory Ventilation, Less than 24 Consecutive Hours, Continuous Positive Airway Pressure (ICD-10-PCS; principal; 2017-04-02)
DX: J44.1 Chronic obstructive pulmonary disease with (acute) exacerbation (principal); J96.21 Acute and chronic respiratory failure with hypoxia; I27.81 Cor pulmonale (chronic); E22.2 Syndrome of inappropriate secretion of antidiuretic hormone; C34.11 Malignant neoplasm of upper lobe, right bronchus or lung; D64.9 Anemia, unspecified; I47.1 Supraventricular tachycardia; I48.92 Unspecified atrial flutter; I44.1 Atrioventricular block, second degree; D72.829 Elevated white blood cell count, unspecified; E78.5 Hyperlipidemia, unspecified; F41.9 Anxiety disorder, unspecified; I10 Essential (primary) hypertension; M19.90 Unspecified osteoarthritis, unspecified site; M85.80 Other specified disorders of bone density and structure, unspecified site; Z79.899 Other long term (current) drug therapy; Z87.891 Personal history of nicotine dependence; Z90.710 Acquired absence of both cervix and uterus; Z99.81 Dependence on supplemental oxygen; Z88.5 Allergy status to narcotic agent; Z91.018 Allergy to other foods; Z91.048 Other nonmedicinal substance allergy status
CPT/HCPCS: 36415; 71046; 80048; 80053; 82550; 82553; 82803; 83605; 83735; 84484; 85025; 85610; 85730; 87040; 87502; 93005; 93306; 94640; 94660; 94760; 96361; 96365; 96366; 96375; 96376; 99291

== ENCOUNTER 2017-05-09 15:31 | Inpatient (IN) | payer MEDICARE, BC ==
[2017-05-09] MEDS ORDERED: methylPREDNISolone SOD SUCCI 125 MG/2 ML VIAL IV STA (15:53)
[2017-05-09] MEDS ORDERED: SODIUM CHLORIDE 0.9% 1,000 ML IV STA (15:53)
[2017-05-09] MEDS ORDERED: ALBUTEROL NEBULIZED 2.5 MG/3 ML INHALATION STA (15:53)
[2017-05-09] MEDS ORDERED: IPRATROPIUM 0.5 MG/2.5 ML NEBU INHALATION STA (15:53)
--- NOTE | 2017-05-09 15:57 | ED ---
General Adult HPI - General Chief complaint: Shortness of Breath Stated complaint: SOB, Hx lung ca, pneumonia Time Seen by Provider: 05/09/17 15:47 Source: patient, family, RN notes reviewed, old records reviewed Mode of arrival: wheelchair Limitations: no limitations - History of Present Illness Initial comments: 81-year-old female history of COPD and lung cancer presents with severe dyspnea. 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 She was diagnosed with pneumonia. Patient is quite dyspneic, she denies any pain complaints including no chest pain. Bleeding has been worsening over the past several days. She does wear 4 L of oxygen at home at baseline. She does not take albuterol secondary to nausea. Eyes any abdominal pain. No nausea vomiting or diarrhea. Denies URI symptoms. Cough is dry and nonproductive. - Related Data Home Medications Medication Instructions Recorded Confirmed Budesonide [Pulmicort Flexhaler] 2 puff INHALATION RT-BID 03/23/17 05/09/17 Calcium Carbonate [Calcium] 600 mg PO QAM@0800 03/23/17 05/09/17 Furosemide [Lasix] 20 mg PO QAM 03/23/17 05/09/17 Lisinopril [Zestril] 20 mg PO DAILY@1800 03/23/17 05/09/17 Multivitamins, Thera [Multivitamin 1 tab PO DAILY 03/23/17 05/09/17 (formulary)] [place]-3 Fatty Acids/Fish Oil [Fish 1 cap PO QAM@0800 03/23/17 05/09/17 Oil 1,000 mg Softgel] Simvastatin [Zocor] 20 mg PO HS@199903/23/17 05/09/17 Umeclidinium [place] [Incruse 1 puff INHALATION RT-DAILY@0800 03/23/17 05/09/17 Ellipta] Ipratropium-Albuterol Nebulize 3 ml INHALATION RT-QID@08,12,16,20 05/09/1705/09 [Duoneb 0.5 mg-3 mg/3 ml Soln] Sennosides-Docusate Sodium 1 tab PO BID@0800,1600 05/09/17 05/09/17 [Senokot-S] Previous Rx's Medication Instructions Recorded INSULIN LISPRO (HumaLOG) [humaLOG] 0 unit SQ ACHS #1 vial 04/05/17 Ipratropium-Albuterol Nebulize 3 ml INHALATION Q4H PRN ampul.neb 04/05/17 [Duoneb 0.5 mg-3 mg/3 ml Soln] Allergies Allergy/AdvReac Type Severity Reaction Status Date / Time chocolate flavor Allergy Dyspnea Verified 05/09/17 16:49 codeine AdvReac stomach & Verified 05/09/17 16:49 bowel issues perfume AdvReac Dyspnea Verified 05/09/17 16:49 Band-Aid AdvReac Rash/Hives Uncoded 05/09/17 15:42 Review of Systems ROS Statement: Those systems with pertinent positive or pertinent negative responses have been documented in the HPI. ROS Other: All systems not noted in ROS Statement are negative. Past Medical History Past Medical History: Cancer, COPD, Hyperlipidemia, Hypertension, Osteoarthritis (OA), Pneumonia Additional Past Medical History / Comment(s): COPD, right upper lobe mass, hypertension, hyperlipidemia, osteoarthritis, osteopenia , cor pulmonale, chronic hypoxic respiratory failure on oxygen at 4 L/m nasal cannula. Lung cancer History of Any Multi-Drug Resistant Organisms: None Reported Past Surgical History: Hysterectomy, Orthopedic Surgery Additional Past Surgical History / Comment(s): foot surgery x 3 Past Anesthesia/Blood Transfusion Reactions: No Reported Reaction Past Psychological History: Anxiety Smoking Status: Former smoker Past Alcohol Use History: None Reported Past Drug Use History: None Reported - Past Family History Mother Family Medical History: Cancer Daughter(s) Family Medical History: Cancer Sister(s) Family Medical History: CVA/TIA General Exam Limitations: no limitations General appearance: alert, in distress Head exam: Present: atraumatic, normocephalic Eye exam: Present: normal appearance, PERRL ENT exam: Present: mucous membranes dry Neck exam: Present: normal inspection. Absent: tenderness, meningismus Respiratory exam: Present: respiratory distress, wheezes, accessory muscle use, decreased breath sounds, prolonged expiratory Cardiovascular Exam: Present: regular rate, normal rhythm GI/Abdominal exam: Present: soft. Absent: distended, tenderness Rectal exam: Present: deferred Extremities exam: Present: normal inspection, normal capillary refill. Absent: pedal edema, calf tenderness Back exam: Present: normal inspection Neurological exam: Present: alert, oriented X3, CN II-XII intact. Absent: motor sensory deficit Psychiatric exam: Present: normal affect, normal mood Skin exam: Present: warm, dry, intact. Absent: cyanosis, diaphoretic Course Vital Signs 05/09/17 05/09/17 05/09/17 15:38 16:02 16:17 Temperature 97.1 F L Pulse Rate 52 L 100 108 H Respiratory 24 Rate Blood Pressure O2 Sat by Pulse 98 Oximetry 05/09/17 05/09/17 16:40 18:13 Temperature Pulse Rate 110 H 117 H Respiratory 32 H Rate Blood Pressure 101/57 O2 Sat by Pulse 89 L Oximetry EKG Findings - EKG Comments: EKG Findings:: EKG shows sinus tachycardia, ventricular 120, [place] interval 144, QRS duration 76, QTC 432, no ST segment elevation Medical Decision Making - Medical Decision Making 81-year-old female with end-stage COPD presenting from pulmonologists office with pneumonia and respiratory distress. Patient is tachypneic and tachycardic with minimal air entry on auscultation. BiPAP was ordered, however patient refuses. She is given a treatment of albuterol and Atrovent as well as steroids in the emergency department. She is on 5 L nasal cannula. She does not want a nonrebreather for additional oxygenation. Labs are obtained, low blood cell count 16.7, hemoglobin 8.8 which is stable, lactic acid of 4.1 secondary to both hypoxia and hypoperfusion. Patient is given IV bolus and placed on maintenance fluids. Troponin is elevated, patient has no chest pain, no specific ischemic changes on EKG. This is likely demand ischemia. This level will be trended. Chest x-ray shows bilateral pneumonia with worsening neoplasm. She started on broad-spectrum antibiotics for healthcare acquired pneumonia. - Lab Data Result diagrams: 05/09/17 16:59 05/09/17 16:59 Lab Results 05/09/17 05/09/17 05/09/17 Range/Units 16:55 16:59 16:59 WBC 16.7 H (3.8-10.6) k/uL RBC 2.87 L (3.80-5.40) m/uL Hgb 8.8 L (11.4-16.0) gm/dL Hct 29.3 L (34.0-46.0) % MCV 101.9 H (80.0-100.0) fL MCH 30.5 (25.0-35.0) pg MCHC 30.0 L (31.0-37.0) g/dL RDW 14.5 (11.5-15.5) % Plt Count 501 H (150-450) k/uL Neutrophils % 82 % Lymphocytes % 10 % Monocytes % 5 % Eosinophils % 0 % Basophils % 1 % Neutrophils # 13.6 H (1.3-7.7) k/uL Lymphocytes # 1.7 (1.0-4.8) k/uL Monocytes # 0.8 (0-1.0) k/uL Eosinophils # 0.0 (0-0.7) k/uL Basophils # 0.2 (0-0.2) k/uL Hypochromasia Moderate Macrocytosis Slight PT 10.5 (9.0-12.0) sec INR 1.1 (<1.2) APTT 23.9 (22.0-30.0) sec VBG pH (7.31-7.41) VBG pCO2 (37-51) mmHg VBG HCO3 (24-28) mmol/L Sodium (137-145) mmol/L Potassium (3.5-5.1) mmol/L Chloride (98-107) mmol/L Carbon Dioxide (22-30) mmol/L Anion Gap mmol/L BUN (7-17) mg/dL Creatinine (0.52-1.04) mg/dL Est GFR (MDRD) Af Amer (>60 ml/min/1.73 sqM) Est GFR (MDRD) Non-Af (>60 ml/min/1.73 sqM) Glucose (74-99) mg/dL Plasma Lactic Acid Domenic (0.7-2.0) mmol/L Calcium (8.4-10.2) mg/dL Magnesium (1.6-2.3) mg/dL Total Bilirubin (0.2-1.3) mg/dL AST (14-36) U/L ALT (9-52) U/L Alkaline Phosphatase (38-126) U/L Total Creatine Kinase (30-135) U/L CK-MB (CK-2) (0.0-2.4) ng/mL CK-MB (CK-2) Rel Index Troponin I (0.000-0.034) ng/mL NT-Pro-B Natriuret Pep pg/mL Total Protein (6.3-8.2) g/dL Albumin (3.5-5.0) g/dL Influenza Type A RNA Not Detected (Not Detectd) Influenza Type B (PCR) Not Detected (Not Detectd) 05/09/17 05/09/17 05/09/17 Range/Units 16:59 16:59 16:59 WBC (3.8-10.6) k/uL RBC (3.80-5.40) m/uL Hgb (11.4-16.0) gm/dL Hct (34.0-46.0) % MCV (80.0-100.0) fL MCH (25.0-35.0) pg MCHC (31.0-37.0) g/dL RDW (11.5-15.5) % Plt Count (150-450) k/uL Neutrophils % % Lymphocytes % % Monocytes % % Eosinophils % % Basophils % % Neutrophils # (1.3-7.7) k/uL Lymphocytes # (1.0-4.8) k/uL Monocytes # (0-1.0) k/uL Eosinophils # (0-0.7) k/uL Basophils # (0-0.2) k/uL Hypochromasia Macrocytosis PT (9.0-12.0) sec INR (<1.2) APTT (22.0-30.0) sec VBG pH (7.31-7.41) VBG pCO2 (37-51) mmHg VBG HCO3 (24-28) mmol/L Sodium 131 L (137-145) mmol/L Potassium 4.4 (3.5-5.1) mmol/L Chloride 82 L (98-107) mmol/L Carbon Dioxide 39 H (22-30) mmol/L Anion Gap 10 mmol/L BUN 26 H (7-17) mg/dL Creatinine 0.70 (0.52-1.04) mg/dL Est GFR (MDRD) Af Amer >60 (>60 ml/min/1.73 sqM) Est GFR (MDRD) Non-Af >60 (>60 ml/min/1.73 sqM) Glucose 124 H (74-99) mg/dL Plasma Lactic Acid Domenic (0.7-2.0) mmol/L Calcium 9.5 (8.4-10.2) mg/dL Magnesium 2.0 (1.6-2.3) mg/dL Total Bilirubin 0.3 (0.2-1.3) mg/dL AST 37 H (14-36) U/L ALT 23 (9-52) U/L Alkaline Phosphatase 83 (38-126) U/L Total Creatine Kinase <20 L (30-135) U/L CK-MB (CK-2) 1.2 (0.0-2.4) ng/mL CK-MB (CK-2) Rel Index Troponin I 0.043 H* (0.000-0.034) ng/mL NT-Pro-B Natriuret Pep 740 pg/mL Total Protein 5.7 L (6.3-8.2) g/dL Albumin 3.1 L (3.5-5.0) g/dL Influenza Type A RNA (Not Detectd) Influenza Type B (PCR) (Not Detectd) 05/09/17 05/09/17 Range/Units 16:59 16:59 WBC (3.8-10.6) k/uL RBC (3.80-5.40) m/uL Hgb (11.4-16.0) gm/dL Hct (34.0-46.0) % MCV (80.0-100.0) fL MCH (25.0-35.0) pg MCHC (31.0-37.0) g/dL RDW (11.5-15.5) % Plt Count (150-450) k/uL Neutrophils % % Lymphocytes % % Monocytes % % Eosinophils % % Basophils % % Neutrophils # (1.3-7.7) k/uL Lymphocytes # (1.0-4.8) k/uL Monocytes # (0-1.0) k/uL Eosinophils # (0-0.7) k/uL Basophils # (0-0.2) k/uL Hypochromasia Macrocytosis PT (9.0-12.0) sec INR (<1.2) APTT (22.0-30.0) sec VBG pH 7.56 H (7.31-7.41) VBG pCO2 38 (37-51) mmHg VBG HCO3 35 H (24-28) mmol/L Sodium (137-145) mmol/L Potassium (3.5-5.1) mmol/L Chloride (98-107) mmol/L Carbon Dioxide (22-30) mmol/L Anion Gap mmol/L BUN (7-17) mg/dL Creatinine (0.52-1.04) mg/dL Est GFR (MDRD) Af Amer (>60 ml/min/1.73 sqM) Est GFR (MDRD) Non-Af (>60 ml/min/1.73 sqM) Glucose (74-99) mg/dL Plasma Lactic Acid Domenic 4.1 H* (0.7-2.0) mmol/L Calcium (8.4-10.2) mg/dL Magnesium (1.6-2.3) mg/dL Total Bilirubin (0.2-1.3) mg/dL AST (14-36) U/L ALT (9-52) U/L Alkaline Phosphatase (38-126) U/L Total Creatine Kinase (30-135) U/L CK-MB (CK-2) (0.0-2.4) ng/mL CK-MB (CK-2) Rel Index Troponin I (0.000-0.034) ng/mL NT-Pro-B Natriuret Pep pg/mL Total Protein (6.3-8.2) g/dL Albumin (3.5-5.0) g/dL Influenza Type A RNA (Not Detectd) Influenza Type B (PCR) (Not Detectd) Critical Care Time Critical Care Time: Yes Total Critical Care Time: 35 Disposition Clinical Impression: COPD (chronic obstructive pulmonary disease), Acute exacerbation of chronic obstructive airways disease, Healthcare-associated pneumonia, Lactic acidosis Disposition: ADMITTED IP TO THIS [facility] Condition: Serious Referrals: Eran Thompson DO [Primary Care Provider] - 1-2 days Decision to Admit Reason: Admit from EC Decision Date: 05/09/17 Decision Time: 18:40
[2017-05-09 17:27] LABS: Basophils # (A) 0.2 k/uL (0-0.2); Basophils % (A) 1 %; Eosinophils % (A) 0 %; HCT 29.3 % (34.0-46.0); HGB 8.8 gm/dL (11.4-16.0); Hypochromasia Moderate; Lymphocytes # (A) 1.7 k/uL (1.0-4.8); Lymphocytes % (A) 10 %; MCH 30.5 pg (25.0-35.0); MCV 101.9 fL (80.0-100.0); Macrocytosis Slight; Mean Platelet Volume 7.3; Monocytes # (A) 0.8 k/uL (0-1.0); Monocytes % (A) 5 %; Neutrophils # (A) 13.6 k/uL (1.3-7.7); Neutrophils % (A) 82 %; Platelet Count 501 k/uL (150-450); RBC 2.87 m/uL (3.80-5.40); RDW 14.5 % (11.5-15.5); WBC 16.7 k/uL (3.8-10.6)
[2017-05-09 17:31] LABS: INR 1.1 (<1.2); Partial Thromboplastin Time 23.9 sec (22.0-30.0); Prothrombin Time 10.5 sec (9.0-12.0)
[2017-05-09 17:40] LABS: VBG PH 7.56 (7.31-7.41)
[2017-05-09 17:49] LABS: Creatine Kinase <20 U/L (30-135)
[2017-05-09] MEDS ORDERED: CEFEPIME 2 GM in SODIUM CHLORIDE 0.9% 50 ML IVPB STA (17:49)
[2017-05-09] MEDS ORDERED: VANCOMYCIN IV PER PHARMACY 1 EACH MISC MISCELLANE PRN (17:49)
[2017-05-09 17:52] LABS: ALT 23 U/L (9-52); AST 37 U/L (14-36); Albumin 3.1 g/dL (3.5-5.0); Alkaline Phosphatase 83 U/L (38-126); Anion Gap 10 mmol/L; Blood Urea Nitrogen 26 mg/dL (7-17); Calcium 9.5 mg/dL (8.4-10.2); Carbon Dioxide 39 mmol/L (22-30); Chloride 82 mmol/L (98-107); Glucose 124 mg/dL (74-99); Potassium 4.4 mmol/L (3.5-5.1); Sodium 131 mmol/L (137-145); Total Bilirubin 0.3 mg/dL (0.2-1.3); Total Protein 5.7 g/dL (6.3-8.2)
--- NOTE | 2017-05-09 17:52 | XR ---
EXAMINATION TYPE: XR chest 1V portable DATE OF EXAM: 05/09/2017 COMPARISON: CT chest March 23, 2017. Chest x-ray April 01, 2017 HISTORY: Right-sided lung cancer with difficulty in breathing. TECHNIQUE: Single AP portable frontal upright view of the chest is obtained. FINDINGS: The osseous structures remain demineralized. High riding bilateral humeral heads consisten t with chronic rotator cuff tears is redemonstrated. Background moderate to advanced emphysematous ch khurram with suspicious right lower lobe mass or neoplasm redemonstrated enlarged in size from prior. Th ere is increasing bibasilar opacity could reflect developing atelectasis and/or infiltrate. Cardiac s ilhouette size is stable and mildly enlarged with atherosclerotic aorta. IMPRESSION: Moderate to advanced emphysematous change and cardiomegaly with increasing size right lo wer lung mass or neoplasm and developing right greater than left bibasilar atelectasis and/or infiltr ate noted.
[2017-05-09 18:00] LABS: Creatine Kinase MB 1.2 ng/mL (0.0-2.4)
[2017-05-09 18:03] LABS: Troponin I 0.043 ng/mL (0.000-0.034)
[2017-05-09] MEDS ORDERED: SODIUM CHLORIDE 0.9% 500 ML IV ONE (18:09)
[2017-05-09] MEDS ORDERED: VANCOMYCIN 1,000 MG in SODIUM CHLORIDE 0.9% 250 ML IVPB ONE (18:30)
[2017-05-09] MEDS ORDERED: NALOXONE 0.4 MG/ML 1 ML VIAL IV PRN (18:34)
[2017-05-09] MEDS ORDERED: ALBUTEROL NEBULIZED 2.5 MG/3 ML INHALATION PRN (18:36)
[2017-05-09] MEDS: ALBUTEROL NEBULIZED 2.5 MG/3 ML INHALATION SCH ×2 (19:20→23:27)
[2017-05-09 19:56] LABS: Glucose,Whole Blood 147 mg/dL (75-99)
[2017-05-09] MEDS ORDERED: ONDANSETRON 4 MG/2 ML VIAL IVP PRN (19:59)
[2017-05-09] MEDS ORDERED: ACETAMINOPHEN TAB 325 MG TAB PO PRN (19:59)
[2017-05-09] MEDS ORDERED: ATORVASTATIN 10 MG TAB PO SCH (20:00)
[2017-05-09] MEDS: BUDESONIDE 1 MG/2 ML NEBU INHALATION SCH (20:19)
[2017-05-09 23:09] LABS: Creatine Kinase MB 2.2 ng/mL (0.0-2.4); Troponin I 0.029 ng/mL (0.000-0.034)
[2017-05-09] MEDS: INSULIN ASPART 100 UNIT/ML 1 ML 10 ML VIAL SQ SCH (23:26)
[2017-05-09 23:28] LABS: Appearance,Urine Clear (Clear); Bilirubin,Urine Negative (Negative); Blood,Urine Negative (Negative); Color,Urine Yellow; Glucose,Urine (UA) Negative (Negative); Ketones,Urine Negative (Negative); Leukocyte Esterase,Urine Negative (Negative); Nitrite,Urine Negative (Negative); PH, Urine 6.5 (5.0-8.0); Protein,Urine Negative (Negative); Urobilinogen,Urine <2.0 mg/dL (<2.0)
[2017-05-09 23:29] LABS: Glucose,Whole Blood 164 mg/dL (75-99)
[2017-05-09] MEDS: HEPARIN SODIUM,PORCINE 5,000 UNIT/ML 1 ML VIAL SQ SCH (23:31)
[2017-05-10] MEDS: ALBUTEROL NEBULIZED 2.5 MG/3 ML INHALATION SCH (03:34)
[2017-05-10 05:52] LABS: ALT 21 U/L (9-52); AST 34 U/L (14-36); Albumin 2.8 g/dL (3.5-5.0); Alkaline Phosphatase 77 U/L (38-126); Anion Gap 8 mmol/L; Blood Urea Nitrogen 24 mg/dL (7-17); Calcium 8.5 mg/dL (8.4-10.2); Carbon Dioxide 33 mmol/L (22-30); Chloride 90 mmol/L (98-107); Glucose 115 mg/dL (74-99); Magnesium 1.9 mg/dL (1.6-2.3); Phosphorus 4.5 mg/dL (2.5-4.5); Potassium 4.4 mmol/L (3.5-5.1); Sodium 131 mmol/L (137-145); Total Bilirubin 0.3 mg/dL (0.2-1.3); Total Protein 5.1 g/dL (6.3-8.2)
[2017-05-10 06:13] LABS: Basophils # (A) 0.1 k/uL (0-0.2); Basophils % (A) 1 %; Eosinophils % (A) 0 %; HCT 25.9 % (34.0-46.0); HGB 7.8 gm/dL (11.4-16.0); Hypochromasia Moderate; Lymphocytes % (A) 6 %; MCH 30.5 pg (25.0-35.0); MCV 101.7 fL (80.0-100.0); Macrocytosis Slight; Mean Platelet Volume 7.5; Monocytes # (A) 0.3 k/uL (0-1.0); Monocytes % (A) 2 %; Neutrophils # (A) 14.2 k/uL (1.3-7.7); Neutrophils % (A) 90 %; Platelet Count 472 k/uL (150-450); RBC 2.54 m/uL (3.80-5.40); RDW 14.4 % (11.5-15.5); WBC 15.7 k/uL (3.8-10.6)
[2017-05-10 06:18] LABS: Troponin I 0.029 ng/mL (0.000-0.034)
[2017-05-10 06:54] LABS: Creatine Kinase MB 6.5 ng/mL (0.0-2.4)
[2017-05-10] MEDS ORDERED: PANTOPRAZOLE 40 MG TABLET PO SCH (07:30)
--- NOTE | 2017-05-10 07:42 | XR ---
EXAMINATION TYPE: XR chest 1V DATE OF EXAM: 05/10/2017 COMPARISON: 05/09/2017, CT chest 03/23/2017 INDICATION: COPD, pneumonia TECHNIQUE: Single frontal view of the chest is obtained. FINDINGS: The heart size is normal. The pulmonary vasculature is normal. There is improved aeration of the right lung base. Lung opacity at the right mid to lower lung field is stable. IMPRESSION: 1. Stable right lower lobe mass. 2. Improving aeration right lower lobe.
[2017-05-10 07:43] LABS: Glucose,Whole Blood 122 mg/dL (75-99)
--- NOTE | 2017-05-10 07:44 | P.CNPUL ---
History of Present Illness Consult date: 05/10/17 Reason for consult: dyspnea, cough, COPD, hypoxemia, abnormal CXR/CT Chief complaint: Shortness of breath History of present illness: Consult dated 05/10/2017 81-year-old female with history of COPD and probable lung cancer. The patient was sent in by my partner from the office. She was diagnosed as having possible pneumonia versus tracheobronchitis. The patient's very dyspneic. She denied any chest pain. Denied any chest pressure or palpitations. Her breathing has been getting worse over 2 or 3 days prior to admission. She does wear oxygen 4 to 5 L. The patient denied any abdominal pain. No nausea or vomiting. There is no diarrhea. No fever no chills. The patient was admitted from the emergency room to the ICU with severe COPD exacerbation. The patient is declaring herself a no code patient. This is very appropriate. The patient' s laying on her left side. She is profoundly short of breath with any activity. She is on O2 at 5 L by nasal cannula and IV of saline at 75 mL an hour. The patient's diagnoses include severe end-stage oxygen-dependent COPD lung mass right upper lobe, likely thought to be lung cancer hyperlipidemia hypertension DJD pneumonia osteoporosis cor pulmonale secondary pulmonary pretension chronic hypoxemic respiratory failure. Her medications include Pulmicort Flexhaler calcium Lasix and Zestril multiple vitamins omega-3 fatty acids Zocor Incruse DuoNeb and Senokot. Review of Systems A 12 point review of systems is positive for profound shortness of breath with any activity. Past Medical History Past Medical History: Atrial Flutter, Cancer, COPD, Hyperlipidemia, Hypertension , Osteoarthritis (OA), Pneumonia Additional Past Medical History / Comment(s): COPD, right upper lobe mass, hypertension, hyperlipidemia, osteoarthritis, osteopenia , cor pulmonale, chronic hypoxic respiratory failure on oxygen at 4 L/m nasal cannula. Lung cancer History of Any Multi-Drug Resistant Organisms: None Reported Past Surgical History: Hysterectomy, Orthopedic Surgery Additional Past Surgical History / Comment(s): foot surgery x 3 Past Anesthesia/Blood Transfusion Reactions: No Reported Reaction Past Psychological History: Anxiety Smoking Status: Former smoker Past Alcohol Use History: None Reported Past Drug Use History: None Reported - Past Family History Mother Family Medical History: Cancer Daughter(s) Family Medical History: Cancer Sister(s) Family Medical History: CVA/TIA Medications and Allergies Home Medications Medication Instructions Recorded Confirmed Type Budesonide [Pulmicort Flexhaler] 2 puff INHALATION RT-BID 03/23/17 05/09/17 History Calcium Carbonate [Calcium] 600 mg PO QAM@0800 03/23/17 05/09/17 History Furosemide [Lasix] 20 mg PO QAM 03/23/17 05/09/17 History Lisinopril [Zestril] 20 mg PO DAILY@1800 03/23/17 05/09/17 History Multivitamins, Thera [Multivitamin 1 tab PO DAILY 03/23/17 05/09/17 History (formulary)] [place]-3 Fatty Acids/Fish Oil [Fish 1 cap PO QAM@0800 03/23/17 05/09/17 History Oil 1,000 mg Softgel] Simvastatin [Zocor] 20 mg PO HS@2000 03/23/17 05/09/17 History Umeclidinium [place] [Incruse 1 puff INHALATION RT-DAILY@0800 03/23/17 05/09/17 History Ellipta] INSULIN LISPRO (HumaLOG) [humaLOG] 0 unit SQ ACHS #1 vial 04/05/17 05/09/17 Rx Ipratropium-Albuterol Nebulize 3 ml INHALATION Q4H PRN ampul.neb 04/05/1705/09 Rx [Duoneb 0.5 mg-3 mg/3 ml Soln] Ipratropium-Albuterol Nebulize 3 ml INHALATION RT-QID@08,12,16,20 05/09/1705/09 History [Duoneb 0.5 mg-3 mg/3 ml Soln] Sennosides-Docusate Sodium 1 tab PO BID@0800,1600 05/09/17 05/09/17 History [Senokot-S] Allergies Allergy/AdvReac Type Severity Reaction Status Date / Time chocolate flavor Allergy Dyspnea Verified 05/09/17 16:49 codeine AdvReac stomach & Verified 05/09/17 16:49 bowel issues perfume AdvReac Dyspnea Verified 05/09/17 16:49 Band-Aid AdvReac Rash/Hives Uncoded 05/09/17 15:42 Physical Exam Osteopathic Statement: *. No significant issues noted on an osteopathic structural exam other than those noted in the History and Physical/Consult. Vitals: Vital Signs Temp Pulse Resp BP Pulse Ox 05/10/17 06:00 108 H 23 125/61 92 L 05/10/17 05:30 113 H 20 104/63 93 L 05/10/17 05:00 98 26 H 114/59 88 L 05/10/17 04:30 105 H 22 105/51 90 L 05/10/17 04:00 98.1 F 85 16 103/52 96 05/10/17 03:30 100 28 H 97/36 88 L 05/10/17 03:00 103 H 22 105/42 94 L 05/10/17 02:30 98 25 H 98/52 88 L 05/10/17 02:00 92 21 87/46 97 05/10/17 01:30 106 H 29 H 93/63 96 05/10/17 01:00 118 H 24 97/51 96 05/10/17 00:30 118 H 25 H 102/49 91 L 05/10/17 00:00 98.1 F 125 H 114/60 98 05/09/17 23:44 113 H 104/53 94 L 05/09/17 23:34 102 H 05/09/17 23:30 107 H 104/53 99 05/09/17 23:27 107 H 05/09/17 23:00 107 H 20 96/50 90 L 05/09/17 22:30 108 H 115/57 93 L 05/09/17 22:00 107 H 20 113/56 92 L 05/09/17 21:30 114 H 102/49 95 05/09/17 21:00 129 H 26 H 89 L 05/09/17 20:30 106 H 141/56 91 L 05/09/17 20:00 98.4 F 127 H 28 H 141/56 88 L 05/09/17 19:36 108 H 05/09/17 19:20 102 H 05/09/17 19:11 96.9 F L 105 H 28 H 114/63 98 05/09/17 18:45 115 H 102/57 92 L 05/09/17 18:13 117 H 32 H 101/57 89 L 05/09/17 16:40 110 H 02/08/18 16:17 108 H 05/09/17 16:02 100 05/09/17 15:38 97.1 F L 52 L 24 98 Intake and Output 05/09/17 05/10/17 05/10/17 22:59 06:59 14:59 Intake Total 150 840 Output Total 1780 Balance 150 -940 Intake: IV 150 600 Sodium Chloride 0.9% 1, 150 600 000 ml @ 75 mls/hr IV . [id number] STA Rx#:[id number] Oral 240 Output: Urine 1780 Other: Voiding Method Bedpan Indwelling Catheter # Voids 0 0 Weight 46.7 kg 46.5 kg The patient is profoundly short of breath, oriented, laying on her left side, O2 in place. HEENT examination is grossly unremarkable. Mucous membranes are moist. No oral lesions. Neck supple. Full range of motion. No adenopathy thyromegaly or neck vein distention. Cardiovascular examination reveals sinus tachycardia. Heart rate 110. S1-S2 normal. Heart sounds are distant. Lungs reveal severely diminished breath sounds. Breath sounds are equal bilaterally. Her few scattered rhonchi and wheezes. No crackles. There is prolongation. Abdomen soft bowel sounds are heard. No masses or tenderness. Extremities are intact. No cyanosis clubbing or edema. Skin is without rash or lesion. Neurologic examination is brief but nonfocal. Results - Laboratory Findings CBC and BMP: 05/10/17 05:00 05/10/17 05:00 PT/INR, D-dimer PT 10.5 sec (9.0-12.0) 05/09/17 16:59 INR 1.1 (<1.2) 05/09/17 16:59 Abnormal lab findings: Abnormal Labs 05/09/17 05/09/17 05/09/17 16:59 16:59 16:59 WBC 16.7 H RBC 2.87 L Hgb 8.8 L Hct 29.3 L MCV 101.9 H MCHC 30.0 L Plt Count 501 H Neutrophils # 13.6 H VBG pH VBG HCO3 Sodium 131 L Chloride 82 L Carbon Dioxide 39 H BUN 26 H Glucose 124 H POC Glucose (mg/dL) Plasma Lactic Acid Domenic AST 37 H Total Creatine Kinase <20 L CK-MB (CK-2) Troponin I 0.043 H* Total Protein 5.7 L Albumin 3.1 L 0205/09/17 05/09/17 16:59 16:59 19:53 WBC RBC Hgb Hct MCV MCHC Plt Count Neutrophils # VBG pH 7.56 H VBG HCO3 35 H Sodium Chloride Carbon Dioxide BUN Glucose POC Glucose (mg/dL) 147 H Plasma Lactic Acid Domenic 4.1 H* AST Total Creatine Kinase CK-MB (CK-2) Troponin I Total Protein Albumin 05/09/17 05/09/17 05/10/17 22:20 23:28 05:00 WBC 15.7 H RBC 2.54 L Hgb 7.8 L Hct 25.9 L MCV 101.7 H MCHC 30.0 L Plt Count 472 H Neutrophils # 14.2 H VBG pH VBG HCO3 Sodium Chloride Carbon Dioxide BUN Glucose POC Glucose (mg/dL) 164 H Plasma Lactic Acid Domenic AST Total Creatine Kinase 24 L CK-MB (CK-2) Troponin I Total Protein Albumin 05/10/17 05/10/17 05:00 05:00 WBC RBC Hgb Hct MCV MCHC Plt Count Neutrophils # VBG pH VBG HCO3 Sodium 131 L Chloride 90 L Carbon Dioxide 33 H BUN 24 H Glucose 115 H POC Glucose (mg/dL) Plasma Lactic Acid Domenic AST Total Creatine Kinase CK-MB (CK-2) 6.5 H* Troponin I Total Protein 5.1 L Albumin 2.8 L - Diagnostic Findings Chest x-ray: image reviewed (Labs x-rays medications are all reviewed. Patient interviewed and examined.) Assessment and Plan Assessment: COPD exacerbation Lung mass, suspected to be lung cancer. Hyperlipidemia History of hypertension DJD History of pneumonia Cor pulmonale with secondary pulmonary hypertension Chronic hypoxemic respiratory failure Previous history of heavy tobacco abuse Plan: Plan dated 05/10/2017 The patient has decided to be a DO NOT RESUSCITATE. Is probably very appropriate. She is a large mass in the right lung. The patient has severe end -stage COPD. We'll make sure that she is on all the usual medications including DuoNeb Pulmicort 1 mg and performance and systemic corticosteroids. Overall prognosis is poor. We'll continue to follow. The patient refuses BiPAP at this time. She also does not want mechanical ventilation. Time with Patient: Greater than 30
[2017-05-10] MEDS ORDERED: IPRATROPIUM-ALBUTEROL 3 ML NEB INHALATION PRN (07:46)
[2017-05-10] MEDS: IPRATROPIUM-ALBUTEROL 3 ML NEB INHALATION SCH ×2 (07:57→11:19)
[2017-05-10] MEDS: BUDESONIDE 1 MG/2 ML NEBU INHALATION SCH (07:57)
[2017-05-10] MEDS ORDERED: NON-FORMULARY DRUG (Omega-3 Fatty Acids/Fish Oil [Fish Oil 1,000 Mg Softgel] 1 CAP) PO SCH (08:00)
[2017-05-10] MEDS ORDERED: FORMOTEROL FUMARATE 20 MCG/2 ML NEBU INHALATION SCH (08:00)
[2017-05-10] MEDS ORDERED: IPRATROPIUM 0.5 MG/2.5 ML NEBU INHALATION SCH (08:00)
[2017-05-10] MEDS ORDERED: SENNOSIDES-DOCUSATE SODIUM 1 EACH TAB PO SCH (08:00)
[2017-05-10] MEDS ORDERED: CALCIUM CARBONATE 500 MG CHEWABLE PO SCH (08:00)
[2017-05-10] MEDS ORDERED: BUDESONIDE 1 MG/2 ML NEBU INHALATION SCH (08:00)
[2017-05-10 08:21] LABS: Glucose,Whole Blood 116 mg/dL (75-99)
[2017-05-10 08:31] VITALS: TEMP 97.7
[2017-05-10] MEDS: INSULIN ASPART 100 UNIT/ML 1 ML 10 ML VIAL SQ SCH ×2 (08:34→12:00)
[2017-05-10] MEDS: HEPARIN SODIUM,PORCINE 5,000 UNIT/ML 1 ML VIAL SQ SCH (08:36)
[2017-05-10] MEDS ORDERED: AMOXIC-POT CLAV 875-125MG 1 EACH TAB PO SCH (09:00)
--- NOTE | 2017-05-10 10:59 | P.HPIM ---
History of Present Illness H&P Date: 05/10/17 Chief Complaint: Shortness of breath 81-year-old female who presented to the emergency room with a chief complaint of shortness of breath. The patient was sent to the emergency room by her radio director and was diagnosed with pneumonia. The patient wears home oxygen at 4 L nasal cannula. She is unable to tolerate albuterol secondary to nausea. She denies chest pain or pressure. She states she does have a cough with no sputum production. The patient has a history of atrial flutter, chronic obstructive pulmonary disease, hyperlipidemia, hypertension, osteoarthritis, and pneumonia. She has chronic hypoxic respiratory failure and wears home oxygen at 4 L nasal cannula. She has a history of anxiety. The patient was hospitalized in March 2017 for difficulty in breathing. At that time Dr. Silva, oncology, was consulted and evaluated patient. She was found to have a 5 cm mass in her right lung. At that time, the patient was not felt to be stable enough to undergo bronchoscopy with biopsy. Chest x-ray: moderate to advanced emphysematous changes and cardiomegaly with increasing right size lower lung mass or neoplasm and developing right greater than left bibasilar atelectasis and/or infiltrate. Laboratory data: WBC 16.7. Hemoglobin 8.8. Platelet count 501. Sodium 131. Potassium 4.4. BUN 26. Creatinine 0.70. GFR greater than 60. Glucose 124. Magnesium 2.0. Troponins: 0.043, 0.029, 0.029 BNP: 740 Testing for influenza A and B was negative The patient was admitted to the hospital under the care of Dr. Thompson. Consultations were placed to pulmonary. Review of Systems GENERAL: Patient denies fever. Denies chills. EYES: Denies blurred vision. Denies vision changes. Denies eye pain. EARS, NOSE, MOUTH, & THROAT: Denies headache. Denies sore throat. Denies ear pain. RESPIRATORY: Positive for shortness of breath. Positive for cough. Denies sputum production. Denies hemoptysis. CARDIOVASCULAR: Denies chest pain or pressure. Denies palpitations. Denies arrhythmias. GASTROINTESTINAL: Denies abdominal pain. Denies diarrhea. Denies constipation. Denies nausea. Denies vomiting. Denies heartburn. Denies blood in the stool. GENITOURINARY: Denies urinary frequency. Denies burning. Denies dysuria. Denies cloudy urine. Denies blood in the urine. MUSCULOSKELETAL: Denies myalgias. Denies joint swelling. Denies decreased range of motion beyond patients baseline. INTEGUMENTARY: Denies pruitis. Denies rash. PSYCHIATRIC: Denies suicidal or homicial ideations. ENDOCRINE: Denies weight change. Denies polydipsia. Denies polyuria. HEMATOLOGIC: Denies bleeding disorders. Past Medical History Past Medical History: Atrial Flutter, Cancer, COPD, Hyperlipidemia, Hypertension , Osteoarthritis (OA), Pneumonia Additional Past Medical History / Comment(s): COPD, right upper lobe mass, hypertension, hyperlipidemia, osteoarthritis, osteopenia , cor pulmonale, chronic hypoxic respiratory failure on oxygen at 4 L/m nasal cannula. Lung cancer History of Any Multi-Drug Resistant Organisms: None Reported Past Surgical History: Hysterectomy, Orthopedic Surgery Additional Past Surgical History / Comment(s): foot surgery x 3 Past Anesthesia/Blood Transfusion Reactions: No Reported Reaction Past Psychological History: Anxiety Smoking Status: Former smoker Past Alcohol Use History: None Reported Past Drug Use History: None Reported - Past Family History Mother Family Medical History: Cancer Daughter(s) Family Medical History: Cancer Sister(s) Family Medical History: CVA/TIA Medications and Allergies Home Medications Medication Instructions Recorded Confirmed Type Budesonide [Pulmicort Flexhaler] 2 puff INHALATION RT-BID 03/23/17 05/09/17 History Calcium Carbonate [Calcium] 600 mg PO QAM@0800 03/23/17 05/09/17 History Furosemide [Lasix] 20 mg PO QAM 03/23/17 05/09/17 History Lisinopril [Zestril] 20 mg PO DAILY@1800 03/23/17 05/09/17 History Multivitamins, Thera [Multivitamin 1 tab PO DAILY 03/23/17 05/09/17 History (formulary)] [place]-3 Fatty Acids/Fish Oil [Fish 1 cap PO QAM@0800 03/23/17 05/09/17 History Oil 1,000 mg Softgel] Simvastatin [Zocor] 20 mg PO HS@199903/23/17 05/09/17 History Umeclidinium [place] [Incruse 1 puff INHALATION RT-DAILY@0800 03/23/17 05/09/17 History Ellipta] INSULIN LISPRO (HumaLOG) [humaLOG] 0 unit SQ ACHS #1 vial 04/05/17 05/09/17 Rx Ipratropium-Albuterol Nebulize 3 ml INHALATION Q4H PRN ampul.neb 04/05/1705/09 Rx [Duoneb 0.5 mg-3 mg/3 ml Soln] Ipratropium-Albuterol Nebulize 3 ml INHALATION RT-QID@08,12,16,20 05/09/1705/09 History [Duoneb 0.5 mg-3 mg/3 ml Soln] Sennosides-Docusate Sodium 1 tab PO BID@0800,1600 05/09/17 05/09/17 History [Senokot-S] Allergies Allergy/AdvReac Type Severity Reaction Status Date / Time chocolate flavor Allergy Dyspnea Verified 05/09/17 16:49 codeine AdvReac stomach & Verified 05/09/17 16:49 bowel issues perfume AdvReac Dyspnea Verified 05/09/17 16:49 Band-Aid AdvReac Rash/Hives Uncoded 05/09/17 15:42 Physical Exam Vitals: Vital Signs Temp Pulse Resp BP Pulse Ox 05/10/17 10:00 97 21 127/61 93 L 05/10/17 09:30 111 H 21 118/58 89 L 05/10/17 09:00 103 H 26 H 128/65 86 L 05/10/17 08:30 102 H 27 H 118/57 90 L 05/10/17 08:14 104 H 05/10/17 08:05 100 05/10/17 08:04 100 05/10/17 08:00 97.7 F 105 H 20 125/65 98 05/10/17 07:59 97 05/10/17 07:30 99 28 H 135/60 98 05/10/17 07:00 94 24 120/59 94 L 05/10/17 06:30 101 H 26 H 123/57 96 05/10/17 06:00 108 H 23 125/61 92 L 05/10/17 05:30 113 H 20 104/63 93 L 05/10/17 05:00 98 26 H 114/59 88 L 05/10/17 04:30 105 H 22 105/51 90 L 05/10/17 04:00 98.1 F 85 16 103/52 96 05/10/17 03:30 100 28 H 97/36 88 L 05/10/17 03:00 103 H 22 105/42 94 L 05/10/17 02:30 98 25 H 98/52 88 L 05/10/17 02:00 92 21 87/46 97 05/10/17 01:30 106 H 29 H 93/63 96 05/10/17 01:00 118 H 24 97/51 96 05/10/17 00:30 118 H 25 H 102/49 91 L 05/10/17 00:00 98.1 F 125 H 114/60 98 05/09/17 23:44 113 H 104/53 94 L 05/09/17 23:34 102 H 05/09/17 23:30 107 H 104/53 99 05/09/17 23:27 107 H 05/09/17 23:00 107 H 20 96/50 90 L 05/09/17 22:30 108 H 115/57 93 L 05/09/17 22:00 107 H 20 113/56 92 L 05/09/17 21:30 114 H 102/49 95 05/09/17 21:00 129 H 26 H 89 L 05/09/17 20:30 106 H 141/56 91 L 05/09/17 20:00 98.4 F 127 H 28 H 141/56 88 L 05/09/17 19:36 108 H 05/09/17 19:20 102 H 05/09/17 19:11 96.9 F L 105 H 28 H 114/63 98 05/09/17 18:45 115 H 102/57 92 L 05/09/17 18:13 117 H 32 H 101/57 89 L 05/09/17 16:40 110 H 05/09/17 16:17 108 H 05/09/17 16:02 100 05/09/17 15:38 97.1 F L 52 L 24 98 Intake and Output 05/09/17 05/10/17 05/10/17 22:59 06:59 14:59 Intake Total 150 840 300 Output Total 1780 150 Balance 150 -940 150 Intake: IV 150 600 300 Sodium Chloride 0.9% 1, 150 600 300 000 ml @ 75 mls/hr IV . [id number] STA Rx#:[id number] Oral 240 Output: Urine 1780 150 Other: Voiding Method Bedpan Indwelling Catheter Indwelling Catheter # Voids 0 0 Weight 46.7 kg 46.5 kg GENERAL: This is a 81-year-old female who appears very short of breath at the time of examination. HEENT: Head is atraumatic, normocephalic. Pupils are equal, round, and reactive to light. Sclerae anicteric. Conjunctivae are clear. Mucus membranes of the mouth are moist. Neck is supple. RESPIRATORY: diminished breath sounds throughout. Equal bilaterally. Scattered rhonchi noted. Some expiratory wheezing auscultated. patient is on 5 L nasal cannula. CARDIOVASCULAR: tachycardic. Regular rate and rhythm. S1 and S2 noted. No JVD noted. No S3 or S4 noted. GASTROINTESTINAL: No distention noted. Abdomen soft and round. Normal active bowel sounds auscultated x 4 quadrants. No pain or tenderness noted upon palpation. INTEGUMENTARY: No cyanosis. No jaundice. No rashes noted. No cellulitis noted. EXTREMITIES: 2+ peripheral pulses. No evidence of peripheral edema. No calf tenderness noted. NEUROLOGIC: Cranial nerves II-XII intact. PSYCHIATRIC: Awake, alert, and oriented X 3. Appropriate affect. Intact judgement and insight. Results CBC & Chem 7: 05/10/17 05:00 05/10/17 05:00 Labs: Abnormal Lab Results - Last 24 Hours (Table) 05/09/17 05/09/17 05/09/17 Range/Units 16:59 16:59 16:59 WBC 16.7 H (3.8-10.6) k/uL RBC 2.87 L (3.80-5.40) m/uL Hgb 8.8 L (11.4-16.0) gm/dL Hct 29.3 L (34.0-46.0) % MCV 101.9 H (80.0-100.0) fL MCHC 30.0 L (31.0-37.0) g/dL Plt Count 501 H (150-450) k/uL Neutrophils # 13.6 H (1.3-7.7) k/uL VBG pH (7.31-7.41) VBG HCO3 (24-28) mmol/L Sodium 131 L (137-145) mmol/L Chloride 82 L (98-107) mmol/L Carbon Dioxide 39 H (22-30) mmol/L BUN 26 H (7-17) mg/dL Glucose 124 H (74-99) mg/dL POC Glucose (mg/dL) (75-99) mg/dL Plasma Lactic Acid Domenic (0.7-2.0) mmol/L AST 37 H (14-36) U/L Total Creatine Kinase <20 L (30-135) U/L CK-MB (CK-2) (0.0-2.4) ng/mL Troponin I 0.043 H* (0.000-0.034) ng/mL Total Protein 5.7 L (6.3-8.2) g/dL Albumin 3.1 L (3.5-5.0) g/dL 05/09/17 05/09/17 05/09/17 Range/Units 16:59 16:59 19:53 WBC (3.8-10.6) k/uL RBC (3.80-5.40) m/uL Hgb (11.4-16.0) gm/dL Hct (34.0-46.0) % MCV (80.0-100.0) fL MCHC (31.0-37.0) g/dL Plt Count (150-450) k/uL Neutrophils # (1.3-7.7) k/uL VBG pH 7.56 H (7.31-7.41) VBG HCO3 35 H (24-28) mmol/L Sodium (137-145) mmol/L Chloride (98-107) mmol/L Carbon Dioxide (22-30) mmol/L BUN (7-17) mg/dL Glucose (74-99) mg/dL POC Glucose (mg/dL) 147 H (75-99) mg/dL Plasma Lactic Acid Domenic 4.1 H* (0.7-2.0) mmol/L AST (14-36) U/L Total Creatine Kinase (30-135) U/L CK-MB (CK-2) (0.0-2.4) ng/mL Troponin I (0.000-0.034) ng/mL Total Protein (6.3-8.2) g/dL Albumin (3.5-5.0) g/dL 05/09/17 05/09/17 05/10/17 Range/Units 22:20 23:28 05:00 WBC 15.7 H (3.8-10.6) k/uL RBC 2.54 L (3.80-5.40) m/uL Hgb 7.8 L (11.4-16.0) gm/dL Hct 25.9 L (34.0-46.0) % MCV 101.7 H (80.0-100.0) fL MCHC 30.0 L (31.0-37.0) g/dL Plt Count 472 H (150-450) k/uL Neutrophils # 14.2 H (1.3-7.7) k/uL VBG pH (7.31-7.41) VBG HCO3 (24-28) mmol/L Sodium (137-145) mmol/L Chloride (98-107) mmol/L Carbon Dioxide (22-30) mmol/L BUN (7-17) mg/dL Glucose (74-99) mg/dL POC Glucose (mg/dL) 164 H (75-99) mg/dL Plasma Lactic Acid Domenic (0.7-2.0) mmol/L AST (14-36) U/L Total Creatine Kinase 24 L (30-135) U/L CK-MB (CK-2) (0.0-2.4) ng/mL Troponin I (0.000-0.034) ng/mL Total Protein (6.3-8.2) g/dL Albumin (3.5-5.0) g/dL 05/10/17 05/10/17 05/10/17 Range/Units 05:00 05:00 07:42 WBC (3.8-10.6) k/uL RBC (3.80-5.40) m/uL Hgb (11.4-16.0) gm/dL Hct (34.0-46.0) % MCV (80.0-100.0) fL MCHC (31.0-37.0) g/dL Plt Count (150-450) k/uL Neutrophils # (1.3-7.7) k/uL VBG pH (7.31-7.41) VBG HCO3 (24-28) mmol/L Sodium 131 L (137-145) mmol/L Chloride 90 L (98-107) mmol/L Carbon Dioxide 33 H (22-30) mmol/L BUN 24 H (7-17) mg/dL Glucose 115 H (74-99) mg/dL POC Glucose (mg/dL) 122 H (75-99) mg/dL Plasma Lactic Acid Domenic (0.7-2.0) mmol/L AST (14-36) U/L Total Creatine Kinase (30-135) U/L CK-MB (CK-2) 6.5 H* (0.0-2.4) ng/mL Troponin I (0.000-0.034) ng/mL Total Protein 5.1 L (6.3-8.2) g/dL Albumin 2.8 L (3.5-5.0) g/dL 05/10/17 Range/Units 08:20 WBC (3.8-10.6) k/uL RBC (3.80-5.40) m/uL Hgb (11.4-16.0) gm/dL Hct (34.0-46.0) % MCV (80.0-100.0) fL MCHC (31.0-37.0) g/dL Plt Count (150-450) k/uL Neutrophils # (1.3-7.7) k/uL VBG pH (7.31-7.41) VBG HCO3 (24-28) mmol/L Sodium (137-145) mmol/L Chloride (98-107) mmol/L Carbon Dioxide (22-30) mmol/L BUN (7-17) mg/dL Glucose (74-99) mg/dL POC Glucose (mg/dL) 116 H (75-99) mg/dL Plasma Lactic Acid Domenic (0.7-2.0) mmol/L AST (14-36) U/L Total Creatine Kinase (30-135) U/L CK-MB (CK-2) (0.0-2.4) ng/mL Troponin I (0.000-0.034) ng/mL Total Protein (6.3-8.2) g/dL Albumin (3.5-5.0) g/dL Thrombosis Risk Factor Assmnt - Choose All That Apply Each Factor Represents 1 point: Abnormal pulmonary function (COPD), Medical pt on bed rest Each Risk Factor Represents 3 Points: Age 75 years or older Thrombosis Risk Factor Assessment Total Risk Factor Score: 5 Thrombosis Risk Factor Assessment Level: High Risk Assessment and Plan Plan: ASSESSMENT: Acute exacerbation of end-stage chronic obstructive pulmonary disease Right lung mass, increasing in size, suspected to be lung cancer, patient is not a candidate to undergo bronchoscopy with biopsy Chronic hypoxic respiratory failure, requiring supplemental oxygen, patient wears 4 L at home Lactic acidosis, resolved with IV hydration Macrocytic, hypochromic anemia, type unknown, no obvious bleeding noted, hemoglobin stable at this time Hyponatremia Abnormal troponins, patient without chest pain or pressure, may to secondary to hypoxia from COPD exacerbation, unlikely diagnosis of acute coronary syndrome at this time Leukocytosis, may to secondary to steroid administration and developing bilateral atelectasis and/or infiltrates Essential hypertension Hyperlipidemia Pulmonary hypertension Anxiety, unspecified History of nicotine dependence, patient is a former heavy cigarette smoker PLAN: Dr. Thompson spoke with patient regarding CODE STATUS. Patient requesting to be DO NOT RESUSCITATE Will consult hospice for palliative care Pulmonary on consult. Appreciate recommendations and input Patient refusing BiPAP at this time Continue IV steroids Capillary blood glucose accuchecks AC/HS while on steroids NovoLog sliding scale AC/HS Augmentin 875/125 every 12 hours Await results of cultures Home meds as appropriate Monitor labs GI prophylaxis: Protonix 40 mg PO Daily DVT prophylaxis: Heparin 5000 units subcu every 8 hours Monitor vital signs and address as appropriate Discharge planning: Patient to return home when stable Further recommendations pending patient's course Nurse practitioner note has been reviewed by physician. Signing provider agrees with the documented findings, assessment, and plan of care.
[2017-05-10] MEDS ORDERED: methylPREDNISolone SOD SUCCI 125 MG/2 ML VIAL IV SCH ×2 (12:00)
[2017-05-10] MEDS ORDERED: MULTIVITAMINS, THERA 1 EACH TAB PO SCH (12:00)
[2017-05-10] MEDS ORDERED: VANCOMYCIN 750 MG in SODIUM CHLORIDE 0.9% 250 ML IVPB SCH (12:00)
[2017-05-10 12:38] VITALS: BP 126/64; PULSE 105; RESP 26
[2017-05-10 13:19] LABS: Hemoglobin A1C 5.9 % (4.0-6.0)
--- NOTE | 2017-05-10 13:44 | CDI ---
Last Revision, March 2017 Documentation Clarification Form Date: 05/10/2017 1:35:00 PM From: Devika MehtaRICHARD, CCDS Admit Date: 05/09/2017 6:34:00 PM Patient Name: Tayler Vivar Visit Number: [id number] Discharge Date: ATTENTION: The Clinical Documentation Specialists (CDI) and [employer] Coding Staff appreciate your assistance in clarifying documentation. Please respond to the clarification below the line at the bottom and electronically sign. The CDI & [employer] Coding staff will review the response and follow-up if needed. Please note: Queries are made part of the Legal Health Record. If you have any questions, please contact the author of this message via ITS. Dr. Eran Thompson: The patient presented with the following respiratory symptoms: Dyspnea. History/Risk Factors: End stage COPD, Chronic hypoxic respiratory failure on baseline 4L O2, suspected right lung cancer. Tobacco use: Former smoker. Clinical Indicators: Vital signs: Resp rate 24 - 32; PO 98 - 88 on up to 5L nc (patient refusing BiPAP) Lung/Breathing assessment: SOB, Cough, Shallow, Tachypnea Blood gases: pH 7.56, HCO3 35 Treatment: Albuterol Neb INH, Ipratropium Neb INH, IV Solumedrol, IV Maxipime, IV Vanco, IV fluid bolus In your professional opinion, can you please clarify if these findings signify one of the following conditions? Acuity of respiratory failure: Acute Chronic Acute on Chronic Please continue to document in your progress notes and discharge summary in order to capture severity of illness and risk of mortality. Include clinical findings that support your diagnosis. MTDD
--- NOTE | 2017-05-10 14:04 | P.DS ---
Providers Date of admission: 05/09/17 18:34 Expected date of discharge: 05/10/17 Attending physician: Eran Thompson Consults: 05/09/17 18:35 Consult Physician Routine Consulting Provider: Emani Pena Consult Reason/Comments: COPD, pneumonia Do you want consulting provider notified?: Yes Primary care physician: Eran Thompson [facility] Course: 81-year-old female who presented to the emergency room with a chief complaint of shortness of breath. The patient was sent to the emergency room by her time study engineer and was diagnosed with pneumonia. The patient wears home oxygen at 4 L nasal cannula. She is unable to tolerate albuterol secondary to nausea. She denies chest pain or pressure. She states she does have a cough with no sputum production. The patient has a history of atrial flutter, chronic obstructive pulmonary disease, hyperlipidemia, hypertension, osteoarthritis, and pneumonia. She has chronic hypoxic respiratory failure and wears home oxygen at 4 L nasal cannula. She has a history of anxiety. The patient was hospitalized in March 2017 for difficulty in breathing. At that time Dr. Silva, oncology, was consulted and evaluated patient. She was found to have a 5 cm mass in her right lung. At that time, the patient was not felt to be stable enough to undergo bronchoscopy with biopsy. Chest x-ray: moderate to advanced emphysematous changes and cardiomegaly with increasing right size lower lung mass or neoplasm and developing right greater than left bibasilar atelectasis and/or infiltrate. Laboratory data: WBC 16.7. Hemoglobin 8.8. Platelet count 501. Sodium 131. Potassium 4.4. BUN 26. Creatinine 0.70. GFR greater than 60. Glucose 124. Magnesium 2.0. Troponins: 0.043, 0.029, 0.029 BNP: 740 Testing for influenza A and B was negative The patient was admitted to the hospital under the care of Dr. Thompson. Consultations were placed to pulmonary. The patient was evaluated by pulmonary. Patient voiced that she does not want to be intubated or have CPR performed. Patient requesting to be DO NOT RESUSCITATE. Consultation was placed to hospice for palliative care. Patient and family agreeable to hospice. Patient to be discharged to [facility] for hosp[facility] care. DISCHARGE DIAGNOSIS: Acute exacerbation of end-stage chronic obstructive pulmonary disease Right lung mass, increasing in size, suspected to be lung cancer, patient is not a candidate to undergo bronchoscopy with biopsy Acute on chronic hypoxic respiratory failure, requiring supplemental oxygen, patient wears 4 L at home Lactic acidosis, resolved with IV hydration Macrocytic, hypochromic anemia, type unknown, no obvious bleeding noted, hemoglobin stable at this time Hyponatremia Abnormal troponins, patient without chest pain or pressure, may to secondary to hypoxia from COPD exacerbation, unlikely diagnosis of acute coronary syndrome at this time Leukocytosis, may to secondary to steroid administration and developing bilateral atelectasis and/or infiltrates Essential hypertension Hyperlipidemia Pulmonary hypertension Anxiety, unspecified History of nicotine dependence, patient is a former heavy cigarette smoker Nurse practitioner note has been reviewed by physician. Signing provider agrees with the documented findings, assessment, and plan of care. Plan - Discharge Summary New Discharge Prescriptions: New LORazepam [Ativan] 1 mg PO Q4H PRN #30 tab PRN Reason: Anxiety Scopolamine 1 patch TRANSDERM Q72H #7 patch Discontinued Calcium Carbonate [Calcium] 600 mg PO QAM@0800 [place]-3 Fatty Acids/Fish Oil [Fish Oil 1,000 mg Softgel] 1 cap PO QAM@0800 Multivitamins, Thera [Multivitamin (formulary)] 1 tab PO DAILY Umeclidinium [place] [Incruse Ellipta] 1 puff INHALATION RT-DAILY@0800 Simvastatin [Zocor] 20 mg PO HS@2000 Furosemide [Lasix] 20 mg PO QAM Lisinopril [Zestril] 20 mg PO DAILY@1800 Budesonide [Pulmicort Flexhaler] 2 puff INHALATION RT-BID INSULIN LISPRO (HumaLOG) [humaLOG] 0 unit SQ ACHS #1 vial Ipratropium-Albuterol Nebulize [Duoneb 0.5 mg-3 mg/3 ml Soln] 3 ml INHALATION Q4H PRN ampul.neb PRN Reason: Shortness Of Breath Or Wheezing Sennosides-Docusate Sodium [Senokot-S] 1 tab PO BID@0800,1600 Ipratropium-Albuterol Nebulize [Duoneb 0.5 mg-3 mg/3 ml Soln] 3 ml INHALATION RT-QID@08,12,16,20 Discharge Medication List LORazepam [Ativan] 1 mg PO Q4H PRN #30 tab 05/10/17 [Rx] Scopolamine 1 patch TRANSDERM Q72H #7 patch 05/10/17 [Rx] Follow up Appointment(s)/Referral(s): Eran Thompson DO [Primary Care Provider] - As Needed Discharge Disposition: DISCH TO HOSPICE MED FACILTY
[2017-05-10] MEDS ORDERED: LISINOPRIL 20 MG TAB PO SCH (18:00)
== END 2017-05-10 14:01 | disposition hospice, inpatient (51) | DRG 190 ==
LOC: EC 15:31 → 6ICU 18:34
PROVIDERS: ADMIT Family Medicine; ATTEND Family Medicine
DX: J44.1 Chronic obstructive pulmonary disease with (acute) exacerbation (principal); J96.21 Acute and chronic respiratory failure with hypoxia; E87.2 Acidosis; I27.29 Other secondary pulmonary hypertension; E87.1 Hypo-osmolality and hyponatremia; I24.8 Other forms of acute ischemic heart disease; J98.11 Atelectasis; D50.9 Iron deficiency anemia, unspecified; E78.5 Hyperlipidemia, unspecified; F41.9 Anxiety disorder, unspecified; I10 Essential (primary) hypertension; M19.90 Unspecified osteoarthritis, unspecified site; M85.80 Other specified disorders of bone density and structure, unspecified site; Y95 Nosocomial condition; Z66 Do not resuscitate; Z79.899 Other long term (current) drug therapy; Z85.118 Personal history of other malignant neoplasm of bronchus and lung; Z87.01 Personal history of pneumonia (recurrent); Z87.891 Personal history of nicotine dependence; Z90.710 Acquired absence of both cervix and uterus; Z99.81 Dependence on supplemental oxygen; T38.0X5A Adverse effect of glucocorticoids and synthetic analogues, initial encounter; D72.829 Elevated white blood cell count, unspecified; R91.8 Other nonspecific abnormal finding of lung field
CPT/HCPCS: 36415; 71045; 71046; 80053; 81003; 82550; 82553; 82803; 83036; 83605; 83735; 83880; 84100; 84484; 85025; 85610; 85730; 87040; 87086; 87502; 93005; 94640; 94644; 96365; 96375; 99214; 99291